=== PATIENT | female | born 1930 | race Caucasian/White ===

== ENCOUNTER 2016-07-27 11:58 | Emergency (ER) | payer MEDICARE ==
--- NOTE | 2016-07-27 12:04 | ER Document Report ---
ED Medical Screen (RME) - General Stated Complaint: BLOOD PRESSURE PROBLEMS Mode of Arrival: Ambulatory Information source: Patient Notes: c/o elevated blood pressure that started this morning. She was at oral surgeon' s office and her son states BP was 202/190 and they referred her here. Current BP in triage is 153/99. She does not take any blood pressure medication. Son states she is scared of needles and has been very anxious. Denies headache, dizziness, changes in vision, chest pain, or SOB. She has not taken any medication for this today. hx of HLD, taking cholesterol medication. I have greeted and performed a rapid initial assessment of this patient. A comprehensive ED assessment and evaluation of the patient, analysis of test results and completion of the medical decision making process will be conducted by additional ED providers. TRAVEL OUTSIDE OF THE [place] IN LAST 30 DAYS: No - Related Data Allergies/Adverse Reactions: No Known Allergies Allergy (Verified 07/27/16 12:02) Past Medical History - Past Medical History Cardiac Medical History: Reports: Hx Hypercholesterolemia Neurological Medical History: Reports: Hx Cerebrovascular Accident Physical Exam - Vital signs Vitals: Temp Pulse Resp BP Pulse Ox 98.1 F 96 18 153/99 H 93 07/27/16 12:03 07/27/16 12:03 07/27/16 12:03 07/27/16 12:03 07/27/16 12:03 Course - Vital Signs Vital signs: Temp Pulse Resp BP Pulse Ox 98.1 F 96 18 153/99 H 93 07/27/16 12:03 07/27/16 12:03 07/27/16 12:03 07/27/16 12:03 07/27/16 12:03
[2016-07-27 12:25] LABS: ABSOLUTE BASOPHILS # (AUTO) 0.1 10^3/uL (0.0-0.2); ABSOLUTE EOSINOPHILS # (AUTO) 0.1 10^3/uL (0.0-0.6); ABSOLUTE LYMPHOCYTES (AUTO) 2.3 10^3/uL (0.5-4.7); ABSOLUTE MONOCYTES (AUTO) 0.7 10^3/uL (0.1-1.4); ABSOLUTE NEUT (AUTO) 5.4 10^3/uL (1.7-8.2); EOSINOPHILS % (AUTO) 1.3 % (0-6); HEMATOCRIT 42.1 % (36.0-47.0); HGB HCT DIFFERENCE -0.1; LYMPHOCYTES % (AUTO) 26.8 % (13-45); MEAN CORPUSCULAR HEMOGLOBIN 31.3 pg (27.0-33.4); MEAN CORPUSCULAR HGB CONC 33.3 g/dL (32.0-36.0); MEAN CORPUSCULAR VOLUME 94 fl (80-97); MONOCYTES % (AUTO) 7.8 % (3-13); RED BLOOD COUNT 4.49 10^6/uL (3.72-5.28); SEGMENTED NEUTROPHILS % (AUTO) 63.1 % (42-78); WHITE BLOOD COUNT 8.5 10^3/uL (4.0-10.5)
[2016-07-27 12:45] LABS: ALANINE AMINOTRANSFERASE 33 U/L (9-52); ALBUMIN 4.5 g/dL (3.5-5.0); ALKALINE PHOSPHATASE 100 U/L (38-126); ANION GAP 11 (5-19); ASPARTATE AMINO TRANSFERASE 29 U/L (14-36); BILIRUBIN,TOTAL 0.7 mg/dL (0.2-1.3); BLOOD UREA NITROGEN 27 mg/dL (7-20); CALCIUM 10.2 mg/dL (8.4-10.2); CARBON DIOXIDE 31 mmol/L (22-30); CHLORIDE 99 mmol/L (98-107); CREATININE RESULT 1.05 mg/dL (0.52-1.25); GLUCOSE 101 mg/dL (75-110); POTASSIUM 4.6 mmol/L (3.6-5.0); SODIUM 140.9 mmol/L (137-145); TOTAL PROTEIN 8.2 g/dL (6.3-8.2)
--- NOTE | 2016-07-27 13:11 | ER Document Report ---
ED General - General Chief Complaint: High Blood Pressure Stated Complaint: BLOOD PRESSURE PROBLEMS Mode of Arrival: Ambulatory Information source: Patient Notes: 86 yrold female with hx of htn presents with complaints of high blood pressure 220/120 at the oral surgeons office. pt notes she gets scared with needles and her bp goes up. pt dneies any other concerns TRAVEL OUTSIDE OF THE [place] IN LAST 30 DAYS: No - HPI Onset: Just prior to arrival Onset/Duration: Sudden Quality of pain: No pain Severity: None Pain Level: Denies Associated symptoms: None Exacerbated by: Denies Relieved by: Denies Similar symptoms previously: Yes Recently seen / treated by doctor: Yes - Related Data Allergies/Adverse Reactions: No Known Allergies Allergy (Verified 07/27/16 12:02) Past Medical History - General Information source: Patient - Social History Smoking Status: Never Smoker Cigarette use (# per day): No Chew tobacco use (# tins/day): No Smoking Education Provided: No Frequency of alcohol use: None Drug Abuse: None Family History: Reviewed & Not Pertinent Patient has suicidal ideation: No Patient has homicidal ideation: No - Past Medical History Cardiac Medical History: Reports: Hx Hypercholesterolemia Neurological Medical History: Reports: Hx Cerebrovascular Accident Renal/ Medical History: Denies: Hx Peritoneal Dialysis Past Surgical History: Reports: Hx Orthopedic Surgery - left hip, Hx Vascular Surgery - cva 5 years ago Review of Systems - Review of Systems Notes: REVIEW OF SYSTEMS: CONSTITUTIONAL : Denies fever, chills, or sweats. Denies recent illness. EENT: Denies eye, ear, throat, or mouth pain or symptoms. Denies nasal or sinus congestion or discharge. Denies throat, tongue, or mouth swelling or difficulty swallowing. CARDIOVASCULAR: Denies chest pain. Denies palpitations or racing or irregular heart beat. Denies ankle edema. RESPIRATORY: Denies cough, cold, or chest congestion. Denies shortness of breath, difficulty breathing, or wheezing. GASTROINTESTINAL: Denies abdominal pain or distention. Denies nausea, vomiting , or diarrhea. Denies blood in vomitus, stools, or per rectum. Denies black, tarry stools. Denies constipation. GENITOURINARY: Denies difficulty urinating, painful urination, burning, frequency, blood in urine, or discharge. FEMALE GENITOURINARY: Denies vaginal bleeding, heavy or abnormal periods, irregular periods. Denies vaginal discharge or odor. MUSCULOSKELETAL: Denies back or neck pain or stiffness. Denies joint pain or swelling. SKIN: Denies rash, lesions or sores. HEMATOLOGIC : Denies easy bruising or bleeding. LYMPHATIC: Denies swollen, enlarged glands. NEUROLOGICAL: Denies confusion or altered mental status. Denies passing out or loss of consciousness. Denies dizziness or lightheadedness. Denies headache. Denies weakness or paralysis or loss of use of either side. Denies problems with gait or speech. Denies sensory loss, numbness, or tingling. Denies seizures. PSYCHIATRIC: Denies anxiety or stress. Denies depression, suicidal ideation, or homicidal ideation. ALL OTHER SYSTEMS REVIEWED AND NEGATIVE. Dictation was performed using [employer] voice recognition software PHYSICAL EXAMINATION: GENERAL: Well-appearing, well-nourished and in no acute distress. HEAD: Atraumatic, normocephalic. EYES: Pupils equal round and reactive to light, extraocular movements intact, conjunctiva are normal. ENT: Nares patent, oropharynx clear without exudates. Moist mucous membranes. NECK: Normal range of motion, supple without lymphadenopathy LUNGS: Breath sounds clear to auscultation bilaterally and equal. No wheezes rales or rhonchi. HEART: Regular rate and rhythm without murmurs ABDOMEN: Soft, nontender, nondistended abdomen. No guarding, no rebound. No masses appreciated. Female : deferred Musculoskeletal: Normal range of motion, no pitting or edema. No cyanosis. NEUROLOGICAL: Cranial nerves grossly intact. Normal speech, normal gait. Normal sensory, motor exams PSYCH: Normal mood, normal affect. SKIN: Warm, Dry, normal turgor, no rashes or lesions noted. Physical Exam - Vital signs Vitals: Temp Pulse Resp BP Pulse Ox 98.1 F 96 18 153/99 H 93 07/27/16 12:03 07/27/16 12:03 07/27/16 12:03 07/27/16 12:03 07/27/16 12:03 Course - Re-evaluation Re-evalutation: 07/27/16 13:12 Physical examination lab work notes no significant abnormality, patient's blood pressure has improved without any intervention. I have spoken to the patient's primary care physician and they will reevaluate her tomorrow family is very happy with this plan After performing a Medical Screening Examination, I estimate there is LOW risk for ACUTE CORONARY SYNDROME, RESPIRATORY FAILURE, SEPSIS OR MENINGITIS, thus I consider the discharge disposition reasonable. The patient and I have discussed the diagnosis and risks, and we agree with discharging home with close follow- up. We also discussed returning to the Emergency Department immediately if new or worsening symptoms occur. We have discussed the symptoms which are most concerning (e.g., changing or worsening pain, trouble swallowing or breathing, neck stiffness, fever) that necessitate immediate return. - Vital Signs Vital signs: Temp Pulse Resp BP Pulse Ox 98.1 F 96 18 153/99 H 93 07/27/16 12:03 07/27/16 12:03 07/27/16 12:03 07/27/16 12:03 07/27/16 12:03 - Laboratory Result Diagrams: 07/27/16 12:10 07/27/16 12:10 Laboratory results interpreted by me: 07/27/16 12:10 Carbon Dioxide 31 H BUN 27 H Est GFR (Non-Af Amer) 50 L Discharge - Discharge Clinical Impression: Hypertension Qualifiers: Hypertension type: essential hypertension Qualified Code(s): I10 - Essential ( primary) hypertension Condition: Stable Disposition: HOME, SELF-CARE Instructions: High Blood Pressure ([facility]) Additional Instructions: You have an appointment with your family doctor tomorrow
[2016-07-27 13:50] VITALS: BP 186/81
--- NOTE | 2016-07-28 09:23 | EKG REPORT ---
SEVERITY:- ABNORMAL ECG - SINUS RHYTHM LEFT ANTERIOR FASCICULAR BLOCK LVH WITH SECONDARY REPOLARIZATION ABNORMALITY : Confirmed by: Abdirashid Coy MD 28-Jul-2016 09:23:14
== END 2016-07-27 13:50 | disposition home or self-care (01) ==
LOC: ER 11:58
DX: I10 Essential (primary) hypertension (principal); Z86.73 Personal history of transient ischemic attack (TIA), and cerebral infarction without residual deficits
CPT/HCPCS: 36415; 80053; 84484; 85025; 93005; 93010; 99284

== ENCOUNTER 2017-04-01 12:40 | Inpatient (IN) | payer MEDICARE ==
[2017-04-01 13:17] LABS: VENOUS BLOOD HCO3 31.2 mmol/L (20-32); VENOUS BLOOD PCO2 64.4 mmHg (35-63); VENOUS BLOOD PH 7.3 (7.30-7.42)
[2017-04-01 13:20] LABS: ABSOLUTE BASOPHILS # (AUTO) 0.1 10^3/uL (0.0-0.2); ABSOLUTE EOSINOPHILS # (AUTO) 0.1 10^3/uL (0.0-0.6); ABSOLUTE LYMPHOCYTES (AUTO) 2.6 10^3/uL (0.5-4.7); ABSOLUTE MONOCYTES (AUTO) 0.9 10^3/uL (0.1-1.4); ABSOLUTE NEUT (AUTO) 4.2 10^3/uL (1.7-8.2); BASOPHILS % (AUTO) 0.8 % (0-2); EOSINOPHILS % (AUTO) 1.5 % (0-6); HEMATOCRIT 40.8 % (36.0-47.0); HEMOGLOBIN 13.8 g/dL (12.0-15.5); HGB HCT DIFFERENCE 0.6; LYMPHOCYTES % (AUTO) 32.5 % (13-45); MEAN CORPUSCULAR HEMOGLOBIN 31.9 pg (27.0-33.4); MEAN CORPUSCULAR HGB CONC 33.9 g/dL (32.0-36.0); MEAN CORPUSCULAR VOLUME 94 fl (80-97); MONOCYTES % (AUTO) 11.9 % (3-13); RED BLOOD COUNT 4.33 10^6/uL (3.72-5.28); RED CELL DISTRIBUTION WIDTH 13.4 % (11.5-14.0); SEGMENTED NEUTROPHILS % (AUTO) 53.3 % (42-78); WHITE BLOOD COUNT 7.9 10^3/uL (4.0-10.5)
[2017-04-01 13:38] LABS: ALANINE AMINOTRANSFERASE 38 U/L (9-52); ALBUMIN 4.5 g/dL (3.5-5.0); ALKALINE PHOSPHATASE 115 U/L (38-126); ANION GAP 15 (5-19); ASPARTATE AMINO TRANSFERASE 30 U/L (14-36); BILIRUBIN,DIRECT 0.5 mg/dL (0.0-0.4); BILIRUBIN,TOTAL 0.9 mg/dL (0.2-1.3); BLOOD UREA NITROGEN 19 mg/dL (7-20); CALCIUM 9.6 mg/dL (8.4-10.2); CARBON DIOXIDE 28 mmol/L (22-30); CHLORIDE 100 mmol/L (98-107); CREATININE RESULT 1.01 mg/dL (0.52-1.25); GLUCOSE 130 mg/dL (75-110); SODIUM 143.1 mmol/L (137-145)
--- NOTE | 2017-04-01 13:39 | ER Document Report ---
ED General - General Chief Complaint: Respiratory Distress Stated Complaint: RESPRITORY DISTRESS Time Seen by Provider: 04/01/17 12:47 Mode of Arrival: Medic Information source: Patient Notes: This is a 87-year-old female to the emergency department chief complaint of shortness of breath patient went to urgent care. Was coughing. Found to have tachycardia and increased work of breathing. Ambulance was called. 2 breathing treatments were given. Solu-Medrol was given in route. Patient denies any chest pain. Denies any leg pain. No abdominal pain. No other complaints at this time. Previous history of CVA with mild deficits remaining on the left side. Denies any recent long trips or travel. Never has had a blood clot before. Sent hospitalizations. Walks with a walker. TRAVEL OUTSIDE OF THE [place] IN LAST 30 DAYS: No - Related Data Allergies/Adverse Reactions: No Known Allergies Allergy (Verified 07/27/16 12:02) Past Medical History - Social History Smoking Status: Former Smoker Family History: Reviewed & Not Pertinent - Past Medical History Cardiac Medical History: Reports: Hx Hypercholesterolemia Neurological Medical History: Reports: Hx Cerebrovascular Accident Renal/ Medical History: Denies: Hx Peritoneal Dialysis Past Surgical History: Reports: Hx Orthopedic Surgery - left hip, Hx Vascular Surgery - cva 5 years ago Physical Exam - Vital signs Vitals: Resp Pulse Ox 20 99 04/01/17 12:51 04/01/17 12:51 Course - Re-evaluation Re-evalutation: 04/01/17 14:41 This is an 87-year-old female in no significant respiratory distress at this time. Patient has some tachycardia but did receive [id number] breathing treatments. D-dimer has been ordered. Does not have a fever. Does have a very significant cough. More likely a bronchitis picture at this time. We will continue to monitor. 04/01/17 16:46 She was grossly elevated d-dimer. Ordering CT scan. Of note, patient has extremely elevated BNP. Will need to be admitted for CHF. Will begin process of admitting. 04/01/17 17:[address] angiogram at this time. 04/01/17 18:02 Laboratory 04/01/17 04/01/17 04/01/17 12:58 12:58 12:58 WBC 7.9 RBC 4.33 Hgb 13.8 Hct 40.8 MCV 94 MCH 31.9 MCHC 33.9 RDW 13.4 Plt Count 151 Seg Neutrophils % 53.3 Lymphocytes % 32.5 Monocytes % 11.9 Eosinophils % 1.5 Basophils % 0.8 Absolute Neutrophils 4.2 Absolute Lymphocytes 2.6 Absolute Monocytes 0.9 Absolute Eosinophils 0.1 Absolute Basophils 0.1 PT 13.0 INR 0.91 D-Dimer VBG pH VBG pCO2 VBG HCO3 VBG Base Excess Sodium 143.1 Potassium 4.0 Chloride 100 Carbon Dioxide 28 Anion Gap 15 BUN 19 Creatinine 1.01 Est GFR ( Amer) > 60 Est GFR (Non-Af Amer) 52 L Glucose 130 H POC Glucose Lactic Acid Calcium 9.6 Total Bilirubin 0.9 Direct Bilirubin 0.5 H Indirect Bilirubin Not Reportable Neonat Total Bilirubin Not Reportable AST 30 ALT 38 Alkaline Phosphatase 115 Troponin I NT-Pro-B Natriuret Pep Total Protein 8.0 Albumin 4.5 Urine Color Urine Appearance Urine pH Ur Specific [place] Urine Protein Urine Glucose (UA) Urine Ketones Urine Blood Urine Nitrite Urine Bilirubin Urine Urobilinogen Ur Leukocyte Esterase Urine WBC (Auto) Urine RBC (Auto) U Hyaline Cast (Auto) Urine Mucus (Auto) Urine Ascorbic Acid 04/01/17 04/01/17 04/01/17 12:58 12:58 12:58 WBC RBC Hgb Hct MCV MCH MCHC RDW Plt Count Seg Neutrophils % Lymphocytes % Monocytes % Eosinophils % Basophils % Absolute Neutrophils Absolute Lymphocytes Absolute Monocytes Absolute Eosinophils Absolute Basophils PT INR D-Dimer VBG pH 7.30 VBG pCO2 64.4 H VBG HCO3 31.2 VBG Base Excess 3.0 Sodium Potassium Chloride Carbon Dioxide Anion Gap BUN Creatinine Est GFR ( Amer) Est GFR (Non-Af Amer) Glucose POC Glucose Lactic Acid 2.3 H Calcium Total Bilirubin Direct Bilirubin Indirect Bilirubin Neonat Total Bilirubin AST ALT Alkaline Phosphatase Troponin I 0.028 NT-Pro-B Natriuret Pep 1170 H Total Protein Albumin Urine Color Urine Appearance Urine pH Ur Specific [place] Urine Protein Urine Glucose (UA) Urine Ketones Urine Blood Urine Nitrite Urine Bilirubin Urine Urobilinogen Ur Leukocyte Esterase Urine WBC (Auto) Urine RBC (Auto) U Hyaline Cast (Auto) Urine Mucus (Auto) Urine Ascorbic Acid 04/01/17 04/01/17 04/01/17 12:58 13:08 13:55 WBC RBC Hgb Hct MCV MCH MCHC RDW Plt Count Seg Neutrophils % Lymphocytes % Monocytes % Eosinophils % Basophils % Absolute Neutrophils Absolute Lymphocytes Absolute Monocytes Absolute Eosinophils Absolute Basophils PT INR D-Dimer 1.84 H VBG pH VBG pCO2 VBG HCO3 VBG Base Excess Sodium Potassium Chloride Carbon Dioxide Anion Gap BUN Creatinine Est GFR ( Amer) Est GFR (Non-Af Amer) Glucose POC Glucose 122 H Lactic Acid Calcium Total Bilirubin Direct Bilirubin Indirect Bilirubin Neonat Total Bilirubin AST ALT Alkaline Phosphatase Troponin I NT-Pro-B Natriuret Pep Total Protein Albumin Urine Color YELLOW Urine Appearance CLEAR Urine pH 6.0 Ur Specific [place] 1.012 Urine Protein NEGATIVE Urine Glucose (UA) NEGATIVE Urine Ketones NEGATIVE Urine Blood NEGATIVE Urine Nitrite NEGATIVE Urine Bilirubin NEGATIVE Urine Urobilinogen NEGATIVE Ur Leukocyte Esterase NEGATIVE Urine WBC (Auto) 2 Urine RBC (Auto) 0 U Hyaline Cast (Auto) 1 Urine Mucus (Auto) RARE Urine Ascorbic Acid NEGATIVE 04/01/17 16:15 WBC RBC Hgb Hct MCV MCH MCHC RDW Plt Count Seg Neutrophils % Lymphocytes % Monocytes % Eosinophils % Basophils % Absolute Neutrophils Absolute Lymphocytes Absolute Monocytes Absolute Eosinophils Absolute Basophils PT INR D-Dimer VBG pH VBG pCO2 VBG HCO3 VBG Base Excess Sodium Potassium Chloride Carbon Dioxide Anion Gap BUN Creatinine Est GFR ( Amer) Est GFR (Non-Af Amer) Glucose POC Glucose Lactic Acid 1.5 Calcium Total Bilirubin Direct Bilirubin Indirect Bilirubin Neonat Total Bilirubin AST ALT Alkaline Phosphatase Troponin I NT-Pro-B Natriuret Pep Total Protein Albumin Urine Color Urine Appearance Urine pH Ur Specific [place] Urine Protein Urine Glucose (UA) Urine Ketones Urine Blood Urine Nitrite Urine Bilirubin Urine Urobilinogen Ur Leukocyte Esterase Urine WBC (Auto) Urine RBC (Auto) U Hyaline Cast (Auto) Urine Mucus (Auto) Urine Ascorbic Acid Chest X-Ray 04/01/17 12:43 IMPRESSION: No significant change. No acute findings. Chest/Abdomen CTA 04/01/17 15:56 IMPRESSION: NORMAL CTA OF THE CHEST. NO PULMONARY EMBOLI. CHRONIC AND INCIDENTAL FINDINGS DETAILED ABOVE. CT scan unremarkable for pulmonary embolism. Elevated BNP. Patient does not remember if she has congestive heart failure or not. More than likely I think this represents some bronchitis. Did have improvement with breathing treatments however her heart rate is still elevated at 115. BNP over 1100. Patient will need to be admitted for treatment of bronchitis as well as treatment for CHF. Consulted hospitalist, Dr. Menendez to accept at this time. - Vital Signs Vital signs: Temp Pulse Resp BP Pulse Ox 98.2 F 126 H 24 H 135/96 H 95 04/01/17 13:12 04/01/17 13:12 04/01/17 17:02 04/01/17 17:02 04/01/17 17:02 - Laboratory Result Diagrams: 04/01/17 12:58 04/01/17 12:58 Laboratory results interpreted by me: 04/01/17 04/01/17 04/01/17 12:58 12:58 12:58 D-Dimer VBG pCO2 64.4 H Est GFR (Non-Af Amer) 52 L Glucose 130 H POC Glucose Lactic Acid 2.3 H Direct Bilirubin 0.5 H NT-Pro-B Natriuret Pep 04/01/17 04/01/17 04/01/17 12:58 12:58 13:08 D-Dimer 1.84 H VBG pCO2 Est GFR (Non-Af Amer) Glucose POC Glucose 122 H Lactic Acid Direct Bilirubin NT-Pro-B Natriuret Pep 1170 H - EKG Interpretation by Me EKG shows normal: Intervals, QRS Complexes, ST-T Waves Rate: Tachycardia Voltage: Consistant with LVH Discharge - Discharge Clinical Impression: Acute bronchitis Qualifiers: Bronchitis organism: unspecified organism Qualified Code(s): J20.9 - Acute bronchitis, unspecified CHF (congestive heart failure) Qualifiers: Congestive heart failure type: diastolic Congestive heart failure chronicity: acute on chronic Qualified Code(s): I50.33 - Acute on chronic diastolic ( congestive) heart failure Condition: Good Disposition: ADMITTED INPATIENT Admitting Provider: Hospitalist Unit Admitted: Telemetry - [place] Referrals: STEPHANIE MORFIN MD [Primary Care Provider] - Follow up as needed
--- NOTE | 2017-04-01 13:49 | RADIOLOGY REPORT (SQ) ---
EXAM DESCRIPTION: CHEST SINGLE VIEW COMPLETED DATE/TIME: 04/01/2017 1:35 pm REASON FOR STUDY: bed 17 sepsis COMPARISON: 07/23/2015 NUMBER OF VIEWS: One view. TECHNIQUE: Single frontal radiographic image of the chest acquired. LIMITATIONS: None. FINDINGS: LUNGS AND PLEURA: Stable appearance. MEDIASTINUM AND HEART: Stable heart size and mediastinal structures. BONY STRUCTURES: No acute findings. HARDWARE: None. OTHER: No other significant finding. IMPRESSION: No significant change. No acute findings. TECHNICAL DOCUMENTATION: JOB ID: [id number]
[2017-04-01 14:21] LABS: APPEARANCE,URINE CLEAR; BILIRUBIN,URINE NEGATIVE (NEGATIVE); GLUCOSE, URINE NEGATIVE (NEGATIVE); KETONES,URINE NEGATIVE (NEGATIVE); LEUKOCYTE ESTERASE,URINE NEGATIVE (NEGATIVE); NITRITE,URINE NEGATIVE (NEGATIVE); PROTEIN,URINE NEGATIVE (NEGATIVE); URINE SPECIFIC GRAVITY 1.012; UROBILINOGEN,URINE NEGATIVE mg/dL (<2.0)
[2017-04-01] MEDS ORDERED: NORMAL SALINE 500 ML IV ONE (14:44)
[2017-04-01] MEDS ORDERED: ALBUTEROL SULFATE 0.083% NEB 2.5 MG/3 ML AMPUL NEB ONE (14:44)
--- NOTE | 2017-04-01 15:05 | EKG REPORT ---
SEVERITY:- ABNORMAL ECG - SINUS TACHYCARDIA LEFT AXIS DEVIATION LVH WITH SECONDARY REPOLARIZATION ABNORMALITY : Confirmed by: Donna Teresa 01-Apr-2017 15:05:00
[2017-04-01 15:22] LABS: TROPONIN I 0.028 ng/mL
[2017-04-01] MEDS ORDERED: FUROSEMIDE INJ/PF 20 MG/2 ML SDV IV ONE (16:05)
--- NOTE | 2017-04-01 17:38 | RADIOLOGY REPORT (SQ) ---
EXAM DESCRIPTION: CTA CHEST COMPLETED DATE/TIME: 04/01/2017 5:02 pm REASON FOR STUDY: sob, d-dimer COMPARISON: Chest radiograph 04/01/2017 TECHNIQUE: CT scan of the chest performed using helical scanning technique with dynamic intravenous contrast injection. Images reviewed with lung, soft tissue and bone windows. Reconstructed coronal and sagittal MPR images reviewed. Additional 3 dimensional post-processing performed to develop Maximal Intensity Projection images (TN P). All images stored on PACS. All CT scanners at this facility use dose modulation, iterative reconstruction, and/or weight based d osing when appropriate to reduce radiation dose to as low as reasonably achievable (ALARA). [facility]: Dose Right [facility]: CareDose [facility]: Dose Right [facility]: Teradose 4D [facility]: Soundflavor CONTRAST TYPE AND DOSE: contrast/concentration: Isovue 370.00 mg/ml; Total Contrast Delivered: 62.0 ml; Total Saline Delivered: 100.1 ml Contrast bolus optimized for the pulmonary arteries. Not diagnostic for the aorta. RENAL FUNCTION: BUN 19; creatinine 1.01 RADIATION DOSE: Up-to-date CT equipment and radiation dose reduction techniques were employed. CTDIv ol: 13.2 - 14.3 mGy. DLP: 494 mGy-cm. . LIMITATIONS: None. FINDINGS: LUNGS AND PLEURA: Mild centrilobular emphysematous change. No focal consolidation. Bibas ilar atelectasis versus scarring. No pleural effusion. No pneumothorax. AORTA AND GREAT VESSELS: Aneurysmal dilatation of the descending thoracic aorta. HEART: No pericardial effusion. Coronary artery calcifications are present. PULMONARY ARTERIES: No emboli visualized in the main pulmonary arteries or the segmental branches. HILAR AND MEDIASTINAL STRUCTURES: No identified masses or abnormal nodes. HARDWARE: None in the chest. UPPER ABDOMEN: Limited exam. Cholelithiasis without evidence of cholecystitis. THYROID AND OTHER SOFT TISSUES: No masses. No adenopathy. BONES: Chronic appearing wedge compression deformity of the L1 vertebral body. Mild wedging of the T 4 vertebral body. Diffuse osteopenia. 3D MIPS: Confirm above findings. OTHER: No other significant finding. IMPRESSION: NORMAL CTA OF THE CHEST. NO PULMONARY EMBOLI. CHRONIC AND INCIDENTAL FINDINGS DETAIL ED ABOVE. COMMENT: Quality ID # [id number]: Final reports with documentation of one or more dose reduction techniques (e.g., Automated exposure control, adjustment of the mA and/or kV according to patient size, use of iterative reconstruction technique) TECHNICAL DOCUMENTATION: JOB ID: [id number] [employer]- All Rights Reserved
[2017-04-01] MEDS ORDERED: ACETAMINOPHEN 325 MG TABLET PO PRN (19:01)
[2017-04-01] MEDS ORDERED: ONDANSETRON HCL INJ/PF 4 MG/2 ML SDV IV PRN (19:01)
[2017-04-01] MEDS ORDERED: BENZONATATE 100 MG CAPSULE PO PRN (19:15)
[2017-04-01] MEDS ORDERED: AZITHROMYCIN 250 MG TABLET PO ONE (20:00)
[2017-04-01] MEDS: BUDESONIDE NEB 0.5 MG/2 ML AMPUL NEB SCH (20:33)
[2017-04-01] MEDS: LEVALBUTEROL HCL NEB 1.25 MG/3 ML AMPUL NEB SCH (20:34)
[2017-04-01] MEDS ORDERED: CEFTRIAXONE 1 GM/D5W RTU 1 GM/50 ML RTUPB IV SCH (22:00)
[2017-04-02] MEDS ORDERED: AZITHROMYCIN 250 MG TABLET ONE (00:38)
[2017-04-02] MEDS: GUAIFENESIN 600 MG TABLET.SA PO SCH ×2 (00:51→09:49)
[2017-04-02] MEDS: LEVALBUTEROL HCL NEB 1.25 MG/3 ML AMPUL NEB SCH ×3 (01:55→13:39)
[2017-04-02] MEDS: BUDESONIDE NEB 0.5 MG/2 ML AMPUL NEB SCH (08:24)
[2017-04-02 09:01] LABS: FREE T3 2.77 pg/mL (2.77-5.27)
[2017-04-02 09:14] LABS: THYROID STIMULATING HORMONE 0.35 uIU/mL (0.47-4.68)
[2017-04-02] MEDS ORDERED: ATORVASTATIN CALCIUM 40 MG TABLET PO SCH (10:00)
[2017-04-02] MEDS ORDERED: PREDNISONE 20 MG TABLET PO SCH (10:00)
[2017-04-02] MEDS ORDERED: ASPIRIN 81 MG TABLET, CHEWABLE PO SCH (10:00)
[2017-04-02] MEDS ORDERED: ENOXAPARIN SODIUM INJ 40 MG/0.4 ML DISP.SYRIN SUBCUT SCH (10:00)
[2017-04-02 17:05] VITALS: BP 109/90
[2017-04-02] MEDS ORDERED: AZITHROMYCIN 250 MG TABLET PO SCH (18:00)
--- NOTE | 2017-04-08 20:09 | PDOC H&P ---
History of Present Illness Admission Date/PCP: 04/01/17 19:01 STEPHANIE MORFIN MD Patient complains of: Difficulty breathing History of Present Illness: LO HUBER is a 87 year old female presenting with complaint of a dry cough since Sunday or 7 days ago. She is also congested. Patient cannot take a deep breathe. Patient states she cannot sit with her head elevated as if is more difficult to breathe. She can however lay flat without any difficulty. Patient states she was around her grandson who has a cold. She denies any swelling of her feet. Patient was seen a [facility]. She was given a nebulizer but it is not helping. Patient did smoke in the past. She quit 30 years ago. She lives in a household where others smoke. She denies having this problem in the past. In the ED patient's vitals where stable. Her lactic acid was elevated. CTA chest was negative for PE or pneumonia. Hospitalist called to to admit patient for acute bronchitis. Past Medical History Cardiac Medical History: Reports: Hyperlipidema Neurological Medical History: Reports: Ischemic CVA Renal/ Medical History: Reports: Chronic Kidney Disease Psychiatric Medical History: Denies: Depression Past Surgical History Past Surgical History: Reports: Orthopedic Surgery - left hip, Vascular Surgery - cva 5 years ago Social History Smoking Status: Former Smoker - Quit 30 years ago Frequency of Alcohol Use: None Hx Recreational Drug Use: No Drugs: None Hx Prescription Drug Abuse: No Family History Family History: CAD Parental Family History Reviewed: Yes Children Family History Reviewed: Yes Sibling(s) Family History Reviewed.: Yes Medication/Allergy Home Medications: Aspirin [Aspirin 81 mg Chewable Tablet] 81 mg PO DAILY 07/23/15 Atorvastatin Calcium [Lipitor] 40 mg PO DAILY 07/23/15 Allergies/Adverse Reactions: No Known Allergies Allergy (Verified 07/27/16 12:02) Review of Systems Constitutional: ABSENT: chills, fever(s), headache(s), weight gain, weight loss Eyes: ABSENT: visual disturbances Ears: ABSENT: hearing changes Cardiovascular: ABSENT: chest pain, dyspnea on exertion, edema, orthropnea, palpitations Respiratory: PRESENT: cough, dyspnea. ABSENT: hemoptysis Gastrointestinal: ABSENT: abdominal pain, constipation, diarrhea, hematemesis, hematochezia, nausea, vomiting Genitourinary: ABSENT: dysuria, hematuria Musculoskeletal: ABSENT: joint swelling Integumentary: ABSENT: rash, wounds Neurological: PRESENT: weakness - left arm. ABSENT: abnormal gait, abnormal speech, confusion, dizziness, focal weakness, syncope Psychiatric: ABSENT: anxiety, depression, homidical ideation, suicidal ideation Endocrine: ABSENT: cold intolerance, heat intolerance, polydipsia, polyuria Hematologic/Lymphatic: ABSENT: easy bleeding, easy bruising Physical Exam Vital Signs: Vitals Temp 98.5 HR 122 BP 172/95 RR 19 Sat 97% 2L General appearance: PRESENT: no acute distress, well-developed, well-nourished Head exam: PRESENT: normocephalic Eye exam: PRESENT: EOMI. ABSENT: scleral icterus Mouth exam: PRESENT: dry mucosa Neck exam: ABSENT: carotid bruit, JVD, lymphadenopathy, thyromegaly Respiratory exam: PRESENT: clear to auscultation addison. ABSENT: rales, rhonchi, wheezes Cardiovascular exam: PRESENT: RRR. ABSENT: diastolic murmur, rubs, systolic murmur Pulses: PRESENT: normal dorsalis pedis pul Vascular exam: PRESENT: normal capillary refill GI/Abdominal exam: PRESENT: normal bowel sounds, soft. ABSENT: distended, guarding, mass, organolmegaly, rebound, tenderness Rectal exam: PRESENT: deferred Extremities exam: PRESENT: full ROM. ABSENT: calf tenderness, clubbing, pedal edema Neurological exam: PRESENT: alert, awake, oriented to person, oriented to place , oriented to time, oriented to situation, CN II-XII grossly intact. ABSENT: motor sensory deficit Psychiatric exam: PRESENT: appropriate affect, normal mood. ABSENT: homicidal ideation, suicidal ideation Skin exam: PRESENT: dry, intact, warm. ABSENT: cyanosis, rash Results Laboratory Results: 04/01/17 04/02/17 04/02/17 19:30 01:17 07:20 Troponin I 0.024 0.030 0.039 Impressions: Chest X-Ray 04/01/17 12:43 IMPRESSION: No significant change. No acute findings. Chest/Abdomen CTA 04/01/17 15:56 IMPRESSION: NORMAL CTA OF THE CHEST. NO PULMONARY EMBOLI. CHRONIC AND INCIDENTAL FINDINGS DETAILED ABOVE. Assessment & Plan - Diagnosis (1) Acute bronchitis Qualifiers: Bronchitis organism: unspecified organism Qualified Code(s): J20.9 - Acute bronchitis, unspecified Plan: Possibly viral in nature. Patient without wheezing. Will start on po prednisone, ceftriaxone and azithromax. Will also start nebs. Patient maintaining sats but will continue supplemental oxygen. Mucinex for congestion and anti tussive PRN. (2) Elevated blood pressure reading Is this a current diagnosis for this admission?: Yes Plan: Patient does not give a history of hypertension. Patient blood pressure could be elevated due to acute illness. Patient should follow up with PCP on discharge to have blood pressure check and started on medication at that time if needed. (3) Lactic acidosis Is this a current diagnosis for this admission?: Yes Plan: Secondary to increased work of breathing. Will gently hydrate as patient does have history of diastolic heart failure. (4) CKD (chronic kidney disease) stage 3, GFR 30-59 ml/min Is this a current diagnosis for this admission?: Yes Plan: Appear to be at baseline. Patient given hydration for elevated lactic acid. (5) Hyperlipidemia Is this a current diagnosis for this admission?: Yes Plan: Continue statin. (6) Diastolic CHF Qualifiers: Congestive heart failure chronicity: chronic Qualified Code(s): I50.32 - Chronic diastolic (congestive) heart failure Is this a current diagnosis for this admission?: Yes Plan: Currently compenstated. - Time Time Spent: 30 to 50 Minutes Medications reviewed and adjusted accordingly: Yes Anticipated discharge: Home Within: within 48 hours - Inpatient Certification Medical Necessity: Need Close Monitoring Due to Risk of Patient Decompensation
--- NOTE | 2017-04-08 22:18 | PDOC DISCHARGE SUMMARY ---
General - Admit/Disc Date/PCP Admission Date/Primary Care Provider: 04/01/17 19:01 STEPHANIE MORFIN MD Discharge Date: 04/02/17 - Discharge Diagnosis (2) Elevated blood pressure reading Is this a current diagnosis for this admission?: Yes (3) Lactic acidosis Is this a current diagnosis for this admission?: Yes (4) CKD (chronic kidney disease) stage 3, GFR 30-59 ml/min Is this a current diagnosis for this admission?: Yes (5) Hyperlipidemia Is this a current diagnosis for this admission?: Yes (6) Diastolic CHF Is this a current diagnosis for this admission?: Yes - Additional Information Discharge Activity: Activity As Tolerated, Balance Activity w/Rest Home Medications: Aspirin [Aspirin 81 mg Chewable Tablet] 81 mg PO DAILY 07/23/15 Atorvastatin Calcium [Lipitor] 40 mg PO DAILY 07/23/15 History of Present Illness History of Present Illness: LO HUBER is a 87 year old female presented wiwth a 7 days history of dry cough and congestion. She was prescribed nebulizer treatments which are not working. CTA chest done in the ED negative for PE or pneumonia. Hospital Course Hospital Course: Patient was admitted and treated for acute bronchitis. Patient given IV ceftriaxone, oral azithromycin and oral prednisone. Patient given mucinex and nebs. Patient continued on supplemental oxygen however she was maintaining her saturations. Patient was able to ambulate with a walker the next day which is her baseline. Patient and family member were sure that they would be able to continue to care for her at home. Patient blood pressure was elevated however she does not have a diagnosis of hypertension. This could be a result of the acute illness and the use of steroids. Patient should follow up with PCP to have this checked. The lactic acidosis could have been related to the breathing difficulties and did resolved with IV hydration. Patient does have history of Grade I diastolic dysfunction but appeared to be euvolemic on presentation. Patient has what appears to be CKD stage 3 but was at her baseline. Patient was continued on her statin for her hyperlipidemia. Physical Exam Vital Signs: Temp Pulse Resp BP Pulse Ox 98.7 F 108 H 18 142/94 H 94 04/02/17 13:17 04/02/17 14:00 04/02/17 13:39 04/02/17 13:17 04/02/17 13:39 General appearance: PRESENT: no acute distress, well-developed, well-nourished Head exam: PRESENT: atraumatic, normocephalic Eye exam: PRESENT: conjunctiva pink, EOMI, PERRLA. ABSENT: scleral icterus Ear exam: PRESENT: normal external ear exam Mouth exam: PRESENT: moist, tongue midline Neck exam: ABSENT: carotid bruit, JVD, lymphadenopathy, thyromegaly Respiratory exam: PRESENT: clear to auscultation addison. ABSENT: rales, rhonchi, wheezes Cardiovascular exam: PRESENT: RRR. ABSENT: diastolic murmur, rubs, systolic murmur Pulses: PRESENT: normal dorsalis pedis pul Vascular exam: PRESENT: normal capillary refill GI/Abdominal exam: PRESENT: normal bowel sounds, soft. ABSENT: distended, guarding, mass, organolmegaly, rebound, tenderness Rectal exam: PRESENT: deferred Extremities exam: PRESENT: full ROM. ABSENT: calf tenderness, clubbing, pedal edema Neurological exam: PRESENT: alert, awake, oriented to person, oriented to place , oriented to time, oriented to situation, CN II-XII grossly intact, other. ABSENT: motor sensory deficit Psychiatric exam: PRESENT: appropriate affect, normal mood. ABSENT: homicidal ideation, suicidal ideation Skin exam: PRESENT: dry, intact, warm. ABSENT: cyanosis, rash Results Laboratory Results: 04/01/17 04/02/17 04/02/17 19:30 01:17 07:20 Troponin I 0.024 0.030 0.039 Impressions: Chest X-Ray 04/01/17 12:43 IMPRESSION: No significant change. No acute findings. Chest/Abdomen CTA 04/01/17 15:56 IMPRESSION: NORMAL CTA OF THE CHEST. NO PULMONARY EMBOLI. CHRONIC AND INCIDENTAL FINDINGS DETAILED ABOVE. Qualifiers PATEINT BEING DISCHARGED WITH ANY OF THE FOLLOWING DIAGNOSIS?: Heart Failure Plan Time Spent: Less than 30 Minutes
== END 2017-04-02 17:02 | disposition home or self-care (01) | DRG 202 ==
LOC: ER 12:40 → EH 18:22 → UNDOADMIN 18:22 → EH 19:01 → 4S 21:55
PROVIDERS: ADMIT Pediatrics; ATTEND Pediatrics
DX: J20.9 Acute bronchitis, unspecified (principal); I50.32 Chronic diastolic (congestive) heart failure; N18.3 Chronic kidney disease, stage 3 (moderate); E78.5 Hyperlipidemia, unspecified; R03.0 Elevated blood-pressure reading, without diagnosis of hypertension; R74.0 Nonspecific elevation of levels of transaminase and lactic acid dehydrogenase [LDH]; Z86.73 Personal history of transient ischemic attack (TIA), and cerebral infarction without residual deficits; Z87.891 Personal history of nicotine dependence
CPT/HCPCS: 36415; 51701; 71010; 71275; 80053; 81001; 82803; 82962; 83605; 83880; 84439; 84443; 84481; 84484; 85025; 85379; 85610; 87040; 87086; 93005; 93010; 94640; 96361; 96374; 99285; J0696; J1650; J1940; J3490; J7040; J7512

== ENCOUNTER 2017-06-08 18:07 | Emergency (ER) | payer MEDICARE ==
--- NOTE | 2017-06-08 19:39 | ER Document Report ---
ED Medical Screen (RME) - General Chief Complaint: High Blood Pressure Stated Complaint: BLOOD PRESSURE ISSUES, SIDE PAIN Time Seen by Provider: 06/08/17 19:31 Notes: 87-year-old female here with complaints of right flank pain ongoing for the past 4-5 days. Pain sometimes radiates around to the abdomen. Pain has been intermittent. She has not noticed anything that significantly worsens or improves the pain. Her PCP sent her over here today because her blood pressure is elevated and he did not know if the elevated blood pressure was related to the flank pain. Of note, family does note that she has aortic abnormalities. TRAVEL OUTSIDE OF THE [place] 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 Denies: Hx Peritoneal Dialysis Psychiatric Medical History: Denies: Hx Depression Past Surgical History: Reports: Hx Orthopedic Surgery - left hip, Hx Vascular Surgery - cva 5 years ago - Immunizations History of Influenza Vaccine for 02/2017 - 07/2017 Season: Yes Influenza Administration Date for 02/2017 - 07/2017 Season: 02/25/17 Physical Exam - Vital signs Vitals: Temp Pulse Resp BP Pulse Ox 98.9 F 103 H 16 168/111 H 91 L 06/08/17 18:32 06/08/17 18:32 06/08/17 18:32 06/08/17 18:32 06/08/17 18:32 Course - Vital Signs Vital signs: Temp Pulse Resp BP Pulse Ox 98.9 F 103 H 16 168/111 H 91 L 06/08/17 18:32 06/08/17 18:32 06/08/17 18:32 06/08/17 18:32 06/08/17 18:32
[2017-06-08 20:12] LABS: AMORPHOUS SEDIMENT,URINE TRACE /HPF; APPEARANCE,URINE CLEAR; BILIRUBIN,URINE NEGATIVE (NEGATIVE); COLOR,URINE YELLOW; GLUCOSE, URINE NEGATIVE (NEGATIVE); KETONES,URINE NEGATIVE (NEGATIVE); LEUKOCYTE ESTERASE,URINE TRACE (NEGATIVE); NITRITE,URINE NEGATIVE (NEGATIVE); PROTEIN,URINE NEGATIVE (NEGATIVE); URINE SPECIFIC GRAVITY 1.011; UROBILINOGEN,URINE NEGATIVE mg/dL (<2.0)
[2017-06-08 20:21] LABS: ABSOLUTE BASOPHILS # (AUTO) 0.1 10^3/uL (0.0-0.2); ABSOLUTE EOSINOPHILS # (AUTO) 0.2 10^3/uL (0.0-0.6); ABSOLUTE MONOCYTES (AUTO) 0.7 10^3/uL (0.1-1.4); ABSOLUTE NEUT (AUTO) 4.8 10^3/uL (1.7-8.2); BASOPHILS % (AUTO) 1.2 % (0-2); EOSINOPHILS % (AUTO) 2.3 % (0-6); HEMATOCRIT 43.8 % (36.0-47.0); LYMPHOCYTES % (AUTO) 33.9 % (13-45); MEAN CORPUSCULAR HEMOGLOBIN 32.1 pg (27.0-33.4); MEAN CORPUSCULAR HGB CONC 34.3 g/dL (32.0-36.0); MEAN CORPUSCULAR VOLUME 93 fl (80-97); MONOCYTES % (AUTO) 7.9 % (3-13); PLATELET COUNT 240 10^3/uL (150-450); RED BLOOD COUNT 4.68 10^6/uL (3.72-5.28); RED CELL DISTRIBUTION WIDTH 13.6 % (11.5-14.0); SEGMENTED NEUTROPHILS % (AUTO) 54.7 % (42-78); TOTAL CELLS COUNTED % (AUTO) 100 %; WHITE BLOOD COUNT 8.8 10^3/uL (4.0-10.5)
[2017-06-08 20:43] LABS: ALANINE AMINOTRANSFERASE 26 U/L (9-52); ALBUMIN 4.7 g/dL (3.5-5.0); ALKALINE PHOSPHATASE 92 U/L (38-126); ANION GAP 13 (5-19); ASPARTATE AMINO TRANSFERASE 29 U/L (14-36); BILIRUBIN,DIRECT 0.4 mg/dL (0.0-0.4); BILIRUBIN,TOTAL 0.6 mg/dL (0.2-1.3); BLOOD UREA NITROGEN 26 mg/dL (7-20); CALCIUM 10.6 mg/dL (8.4-10.2); CARBON DIOXIDE 28 mmol/L (22-30); CHLORIDE 99 mmol/L (98-107); GLUCOSE 100 mg/dL (75-110); LIPASE 134.4 U/L (23-300); POTASSIUM 4.4 mmol/L (3.6-5.0); SODIUM 139.6 mmol/L (137-145); TOTAL PROTEIN 7.9 g/dL (6.3-8.2)
--- NOTE | 2017-06-08 21:40 | RADIOLOGY REPORT (SQ) ---
EXAM DESCRIPTION: CTA CHEST COMPLETED DATE/TIME: 06/08/2017 9:23 pm REASON FOR STUDY: R flank/side pain and elevated BP; eval dissection COMPARISON: 04/01/2017 TECHNIQUE: CT scan of the chest performed using helical scanning technique with dynamic intravenous contrast injection. Images reviewed with lung, soft tissue and bone windows. Reconstructed coronal and sagittal MPR images reviewed. Additional 3 dimensional post-processing performed to develop Maximal Intensity Projection images (NV P). All images stored on PACS. All CT scanners at this facility use dose modulation, iterative reconstruction, and/or weight based d osing when appropriate to reduce radiation dose to as low as reasonably achievable (ALARA). [facility]: Dose Right [facility]: CareDose [facility]: Dose Right [facility]: Teradose 4D [facility]: [employer] CONTRAST TYPE AND DOSE: contrast/concentration: Isovue 370.00 mg/ml; Total Contrast Delivered: 100.0 ml; Total Saline Delivered: 90.0 ml Contrast bolus adequate for pulmonary arteries and aorta. RENAL FUNCTION: Creatinine 1.1 RADIATION DOSE: . LIMITATIONS: None. FINDINGS: LUNGS AND PLEURA: Mild interstitial changes. Question mild failure. No correlative chest x-ray. AORTA AND GREAT VESSELS: Extensive maximum diameter of the descending aorta is 4 cm. Maximum diamete r upper abdominal aorta are is 3.7 cm. Ectasia with calcification and mural thrombus. No focal aneu rysm or dissection. HEART: No pericardial effusion. No significant coronary artery calcifications. PULMONARY ARTERIES: No emboli visualized in the main pulmonary arteries or the segmental branches. HILAR AND MEDIASTINAL STRUCTURES: No identified masses or abnormal nodes. HARDWARE: None in the chest. UPPER ABDOMEN: See separate report of the CT of the abdomen. THYROID AND OTHER SOFT TISSUES: No masses. No adenopathy. BONES: Stable compression fractures. 3D MIPS: Confirm above findings. OTHER: No other significant finding. 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 Maximum d iameter descending aorta 4 cm. No dissection. No pulmonary emboli. COMMENT: Quality ID # [id number]: Final reports with documentation of one or more dose reduction techniques (e.g., Automated exposure control, adjustment of the mA and/or kV according to patient size, use of iterative reconstruction technique) TECHNICAL DOCUMENTATION: JOB ID: [id number]- All Rights Reserved
--- NOTE | 2017-06-08 21:47 | RADIOLOGY REPORT (SQ) ---
EXAM DESCRIPTION: CTA ABDOMEN/PELVIS W WO COMPLETED DATE/TIME: 06/08/2017 9:23 pm REASON FOR STUDY: R flank/side pain and elevated BP; eval dissection COMPARISON: None. TECHNIQUE: CT scan of the abdominal aorta extending through the pelvis with intravenous contrast usi ng helical scanning technique with dynamic intravenous contrast injection. Images reviewed with lung, soft tissue, and bone windows. Reconstructed coronal and sagittal MPR images reviewed. All images st ored on PACS. Advanced 3D imaging as volume rendering, MIPS, SSD performed? yes All CT scanners at this facility use dose modulation, iterative reconstruction, and/or weight based d osing when appropriate to reduce radiation dose to as low as reasonably achievable (ALARA). [facility]: Dose Right [facility]: CareDose [facility]: Dose Right [facility]: Teradose 4D [facility]: [employer] CONTRAST TYPE AND DOSE: See chest CT RENAL FUNCTION: See chest CT LIMITATIONS: None. FINDINGS: POST-CONTRAST IMAGING: AORTA AND VESSELS: Diffuse ectasia. Proximal dilatation of the abdominal aorta up to 4 cm proximal t o the celiac axis and SMA. Distal there is no aneurysm but there is a ectasia with mural thrombus an d extensive calcification. No occlusions of great vessels. LUNG BASES: No significant findings. No nodules or infiltrates. LIVER: Normal size. No masses or dilated ducts. SPLEEN: Normal size. No focal lesions. PANCREAS: No masses. No significant calcifications. No adjacent inflammation or peripancreatic fluid collections. Pancreatic duct not dilated. GALLBLADDER: Gallstones. Distended gallbladder. ADRENAL GLANDS: No significant masses or asymmetry. RIGHT KIDNEY AND URETER: No mass, calculi or urinary tract obstruction. LEFT KIDNEY AND URETER: No mass, calculi or urinary tract obstruction. RETROPERITONEUM: No retroperitoneal adenopathy, hemorrhage or masses. BOWEL AND PERITONEAL CAVITY: No masses or inflammatory changes. No free fluid or peritoneal masses. APPENDIX: Not visualized. ABDOMINAL WALL: No masses. No hernias. BONY STRUCTURES: Stable compression fractures. 3-D IMAGING: Confirms the above findings. OTHER: No other significant finding. 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 Patent renal arteries, SMA, celiac axis. Gallstones with distended gallbladder. TECHNICAL DOCUMENTATION: JOB ID: [id number] Quality ID # [id number]: Final reports with documentation of one or more dose reduction techniques (e.g., Au tomated exposure control, adjustment of the mA and/or kV according to patient size, use of iterative reconstruction technique) 2010 [employer]- All Rights Reserved
--- NOTE | 2017-06-08 23:26 | ER Document Report ---
ED General - General Chief Complaint: High Blood Pressure Stated Complaint: BLOOD PRESSURE ISSUES, SIDE PAIN Time Seen by Provider: 06/08/17 19:31 Mode of Arrival: Ambulatory Information source: Patient Notes: 87-year-old female presents with complaints of right flank pain. Patient notes the pain has been ongoing intermittently for the past week. Denies any fevers or chills denies any nausea vomiting or diarrhea. Patient was seen by primary care physician and performed an x-ray and noted calcification of the aorta and patient was sent in for evaluation of the area. She has no abdominal pain midline denies any other concerns except for high blood pressure TRAVEL OUTSIDE OF THE [place] IN LAST 30 DAYS: No - HPI Onset: Last week Onset/Duration: Intermittent Quality of pain: Cramping Severity: Mild Pain Level: 1 Associated symptoms: Other Exacerbated by: Denies Relieved by: Denies Similar symptoms previously: Yes Recently seen / treated by doctor: Yes - Related Data Allergies/Adverse Reactions: No Known Allergies Allergy (Verified 06/08/17 18:08) Past Medical History - Social History Smoking Status: Never Smoker Cigarette use (# per day): No Chew tobacco use (# tins/day): No Smoking Education Provided: No Frequency of alcohol use: None Drug Abuse: None Family History: CAD Patient has suicidal ideation: No Patient has homicidal ideation: No - Past Medical History Cardiac Medical History: Reports: Hx Congestive Heart Failure, Hx Hypercholesterolemia Neurological Medical History: Reports: Hx Cerebrovascular Accident Renal/ Medical History: Reports: Hx End Stage Renal Disease - Stage 3 - Not on dialysis 04/01/17. Denies: Hx Peritoneal Dialysis Psychiatric Medical History: Denies: Hx Depression Past Surgical History: Reports: Hx Orthopedic Surgery - left hip, Hx Vascular Surgery - cva 5 years ago Review of Systems - Review of Systems Notes: REVIEW OF SYSTEMS: CONSTITUTIONAL : Denies fever, chills, or sweats. Denies recent illness. EENT: Denies eye, ear, throat, or mouth pain or symptoms. Denies nasal or sinus congestion or discharge. Denies throat, tongue, or mouth swelling or difficulty swallowing. CARDIOVASCULAR: Denies chest pain. Denies palpitations or racing or irregular heart beat. Denies ankle edema. RESPIRATORY: Denies cough, cold, or chest congestion. Denies shortness of breath, difficulty breathing, or wheezing. GASTROINTESTINAL: Admits to right flank pain GENITOURINARY: Denies difficulty urinating, painful urination, burning, frequency, blood in urine, or discharge. FEMALE GENITOURINARY: Denies vaginal bleeding, heavy or abnormal periods, irregular periods. Denies vaginal discharge or odor. MUSCULOSKELETAL: Denies back or neck pain or stiffness. Denies joint pain or swelling. SKIN: Denies rash, lesions or sores. HEMATOLOGIC : Denies easy bruising or bleeding. LYMPHATIC: Denies swollen, enlarged glands. NEUROLOGICAL: Denies confusion or altered mental status. Denies passing out or loss of consciousness. Denies dizziness or lightheadedness. Denies headache. Denies weakness or paralysis or loss of use of either side. Denies problems with gait or speech. Denies sensory loss, numbness, or tingling. Denies seizures. PSYCHIATRIC: Denies anxiety or stress. Denies depression, suicidal ideation, or homicidal ideation. ALL OTHER SYSTEMS REVIEWED AND NEGATIVE. PHYSICAL EXAMINATION: GENERAL: Well-appearing, well-nourished and in no acute distress. HEAD: Atraumatic, normocephalic. EYES: Pupils equal round and reactive to light, extraocular movements intact, conjunctiva are normal. ENT: Nares patent, oropharynx clear without exudates. Moist mucous membranes. NECK: Normal range of motion, supple without lymphadenopathy LUNGS: Breath sounds clear to auscultation bilaterally and equal. No wheezes rales or rhonchi. HEART: Regular rate and rhythm without murmurs ABDOMEN: Soft, minimally tender right upper quadrant, nondistended abdomen. No guarding, no rebound. No masses appreciated. Female : deferred Musculoskeletal: Normal range of motion, no pitting or edema. No cyanosis. NEUROLOGICAL: Cranial nerves grossly intact. Normal speech, normal gait. Normal sensory, motor exams PSYCH: Normal mood, normal affect. SKIN: Warm, Dry, normal turgor, no rashes or lesions noted. 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 Kincaid, he believes the patient's pain may be related to the gallbladder but given that she has no white count is not vomiting has no fevers and LFTs are normal that this could be performed outpatient. Patient will be given outpatient follow-up she is ecstatic that she is being discharged. Very strict return precautions have been provided to her After performing a Medical Screening Examination, I estimate there is LOW risk for ACUTE APPENDICITIS, BOWEL OBSTRUCTION, ACUTE CHOLECYSTITIS, PERFORATED DIVERTICULITIS, INCARCERATED HERNIA, PANCREATITIS, PELVIC INFLAMMATORY DISEASE, PERFORATED ULCER, ECTOPIC , or TUBO-OVARIAN ABSCESS, thus I consider the discharge disposition reasonable. Also, there is no evidence or peritonitis , sepsis, or toxicity. I have reevaluated this patient multiple times and no significant life threatening changes are noted. The patient and I have discussed the diagnosis and risks, and we agree with discharging home with close follow-up with the understanding that symptoms and presentations can change. We also discussed returning to the Emergency Department immediately if new or worsening symptoms occur. We have discussed the symptoms which are most concerning (e.g., bloody stool, fever, changing or worsening pain, vomiting) that necessitate immediate return. - Vital Signs Vital signs: Temp Pulse Resp BP Pulse Ox 98.9 F 103 H 16 168/111 H 91 L 06/08/17 18:32 06/08/17 18:32 06/08/17 18:32 06/08/17 18:32 06/08/17 18:32 - Laboratory Result Diagrams: 06/08/17 20:02 06/08/17 20:02 Laboratory results interpreted by me: 06/08/17 06/08/17 19:45 20:02 BUN 26 H Est GFR (Non-Af Amer) 52 L Calcium 10.6 H Ur Leukocyte Esterase TRACE H - Diagnostic Test Radiology reviewed: Image reviewed, Reports reviewed - Reports given to patient Discharge - Discharge Clinical Impression: Gallbladder disease, Elevated blood pressure reading Abdominal pain Qualifiers: Abdominal location: right upper quadrant Qualified Code(s): R10.11 - Right upper quadrant pain Condition: Stable Disposition: HOME, SELF-CARE Instructions: Gallbladder Disease ([facility]) Referrals: STEPHANIE MORFIN MD [Primary Care Provider] - Follow up as needed ABELARDO TEMPLE MD [ACTIVE STAFF] - Follow up tomorrow
--- NOTE | 2017-06-09 00:41 | PDOC CONSULTATION ---
Consultation Consult Date: 06/09/17 Consult reason:: Right lower back pains History of Present Illness Admission Date/PCP: STEPHANIE MORFIN MD History of Present Illness: LO HUBER is a 87 year old female who started c/o right lower back pains radiating to the RUQ with occasional nausea since 4 days ago. Denies fatte food intolerance though daughter,who lives with the patient, refrains from cooking fried food. CT scan of abdomen in the ER showed gallstones with distention. Past Medical History Cardiac Medical History: Reports: Congestive Heart Failure, Hyperlipidema Renal/ Medical History: Reports: End Stage Renal Disease - Stage 3 - Not on dialysis 04/01/17 Psychiatric Medical History: Denies: Depression Past Surgical History Past Surgical History: Reports: Orthopedic Surgery - left hip, Vascular Surgery - cva 5 years ago Social History Smoking Status: Never Smoker Frequency of Alcohol Use: None Hx Recreational Drug Use: No Drugs: None Hx Prescription Drug Abuse: No Family History Family History: CAD Parental Family History Reviewed: Yes - both parents of CHF Children Family History Reviewed: No Sibling(s) Family History Reviewed.: No Medication/Allergy Home Medications: Aspirin [Aspirin 81 mg Chewable Tablet] 81 mg PO DAILY 07/23/15 Atorvastatin Calcium [Lipitor] 40 mg PO DAILY 07/23/15 Allergies/Adverse Reactions: No Known Allergies Allergy (Verified 06/08/17 18:08) Review of Systems Constitutional: PRESENT: other - no fever/cills Eyes: PRESENT: other - no visual/hearing changes Nose, Mouth, and Throat: PRESENT: other - no sore throat Respiratory: PRESENT: other - no cough Gastrointestinal: PRESENT: abdominal pain, nausea Musculoskeletal: PRESENT: back pain Integumentary: PRESENT: other - no skin rash Neurological: PRESENT: other - no seizures Physical Exam Vital Signs: Temp Pulse Resp BP Pulse Ox 98.9 F 103 H 16 168/111 H 91 L 06/08/17 18:32 06/08/17 18:32 06/08/17 18:32 06/08/17 18:32 06/08/17 18:32 Intake & Output 06/07/17 06/08/17 06/09/17 06:59 06:59 06:59 Weight 57.27 kg General appearance: PRESENT: no acute distress Head exam: PRESENT: atraumatic Eye exam: PRESENT: conjunctiva pink Mouth exam: PRESENT: moist, tongue midline Neck exam: PRESENT: full ROM Respiratory exam: PRESENT: clear to auscultation addison Cardiovascular exam: PRESENT: RRR Pulses: PRESENT: normal radial pulses Vascular exam: PRESENT: normal capillary refill GI/Abdominal exam: PRESENT: soft, tenderness - RUQ and opposite right lower back Rectal exam: PRESENT: deferred Extremities exam: PRESENT: full ROM Musculoskeletal exam: PRESENT: ambulatory - with walker Neurological exam: PRESENT: alert, oriented to person, oriented to place, oriented to time, oriented to situation Psychiatric exam: PRESENT: appropriate affect Skin exam: PRESENT: normal color, warm Results Laboratory Results: 06/08/17 20:02 06/08/17 20:02 06/08/17 06/08/17 06/08/17 19:45 20:02 20:02 WBC 8.8 RBC 4.68 Hgb 15.0 Hct 43.8 MCV 93 MCH 32.1 MCHC 34.3 RDW 13.6 Plt Count 240 Seg Neutrophils % 54.7 Lymphocytes % 33.9 Monocytes % 7.9 Eosinophils % 2.3 Basophils % 1.2 Absolute Neutrophils 4.8 Absolute Lymphocytes 3.0 Absolute Monocytes 0.7 Absolute Eosinophils 0.2 Absolute Basophils 0.1 Sodium 139.6 Potassium 4.4 Chloride 99 Carbon Dioxide 28 Anion Gap 13 BUN 26 H Creatinine 1.01 Est GFR ( Amer) > 60 Est GFR (Non-Af Amer) 52 L Glucose 100 Calcium 10.6 H Total Bilirubin 0.6 AST 29 ALT 26 Alkaline Phosphatase 92 Total Protein 7.9 Albumin 4.7 Lipase 134.4 Urine Color YELLOW Urine Appearance CLEAR Urine pH 5.0 Ur Specific Tyner 1.011 Urine Protein NEGATIVE Urine Glucose (UA) NEGATIVE Urine Ketones NEGATIVE Urine Blood NEGATIVE Urine Nitrite NEGATIVE Ur Leukocyte Esterase TRACE H Urine WBC (Auto) 1 Urine RBC (Auto) 0 Impressions: Abdomen/Pelvis CTA 06/08/17 19:36 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 Patent renal arteries, SMA, celiac axis. Gallstones with distended gallbladder. 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 No dissection. No pulmonary emboli. Assessment & Plan - Time Time Spent: 30 to 50 Minutes - Plan Summary Plan Summary: Patient wants to go home. Pains primarily at the right lower back is tolerabe .Told her she can go but if pains worsen or develops N/V then she has to come back to the ER. Otherwise, follow up at the surgical clinic this week.
[2017-06-09 01:01] VITALS: BP 170/92
== END 2017-06-09 00:50 | disposition home or self-care (01) ==
LOC: ER 18:07
DX: K82.9 Disease of gallbladder, unspecified (principal); R10.11 Right upper quadrant pain; R03.0 Elevated blood-pressure reading, without diagnosis of hypertension
CPT/HCPCS: 36415; 71275; 74174; 80048; 80076; 81001; 83690; 85025; 99285

== ENCOUNTER 2017-06-09 10:06 | Inpatient (IN) | payer MEDICARE ==
[~2017-06-09 10:06] MED LIST: GLYCOPYRROLATE INJ 0.4 MG/2 ML VIAL ONE; NEOSTIGMINE METHYLSULFATE 10 MG/10 ML VIAL ONE; ONDANSETRON HCL INJ/PF 4 MG/2 ML SDV ONE; ROCURONIUM BROMIDE INJ 50 MG/5 ML VIAL IV ONE; SUCCINYLCHOLINE CHLORIDE INJ 200 MG/10 ML VIAL ONE
--- NOTE | 2017-06-09 10:36 | ER Document Report ---
ED Medical Screen (RME) - General Chief Complaint: Abdominal Pain Stated Complaint: ABDOMINAL PAIN Time Seen by Provider: 06/09/17 10:34 Mode of Arrival: Wheelchair Information source: Patient, Relative TRAVEL OUTSIDE OF THE [place] IN LAST 30 DAYS: No - HPI Patient complains to provider of: Gallbladder pain Onset: Yesterday - pt seen here yesterday for cholecystitis and wsa told to return if he pain increases -- pt. returns to "have surgery done." - Related Data Allergies/Adverse Reactions: No Known Allergies Allergy (Verified 06/08/17 18:08) Past Medical History - Past Medical History Cardiac Medical History: Reports: Hx Congestive Heart Failure, Hx Hypercholesterolemia Neurological Medical History: Reports: Hx Cerebrovascular Accident Renal/ Medical History: Reports: Hx End Stage Renal Disease - Stage 3 - Not on dialysis 04/01/17. Denies: Hx Peritoneal Dialysis Psychiatric Medical History: Denies: Hx Depression Past Surgical History: Reports: Hx Orthopedic Surgery - left hip, Hx Vascular Surgery - cva 5 years ago - Immunizations History of Influenza Vaccine for 02/2017 - 07/2017 Season: Yes Influenza Administration Date for 02/2017 - 07/2017 Season: 02/25/17 Physical Exam - Vital signs Vitals: Temp Pulse Resp BP Pulse Ox 98.2 F 85 16 111/66 100 06/09/17 10:20 06/09/17 10:20 06/09/17 10:20 06/09/17 10:20 06/09/17 10:20 Course - Vital Signs Vital signs: Temp Pulse Resp BP Pulse Ox 98.2 F 85 16 111/66 100 06/09/17 10:20 06/09/17 10:20 06/09/17 10:20 06/09/17 10:20 06/09/17 10:20
[2017-06-09 11:25] LABS: ABSOLUTE BASOPHILS # (AUTO) 0.1 10^3/uL (0.0-0.2); ABSOLUTE EOSINOPHILS # (AUTO) 0.2 10^3/uL (0.0-0.6); ABSOLUTE LYMPHOCYTES (AUTO) 1.6 10^3/uL (0.5-4.7); ABSOLUTE MONOCYTES (AUTO) 0.8 10^3/uL (0.1-1.4); BASOPHILS % (AUTO) 1.2 % (0-2); EOSINOPHILS % (AUTO) 2.7 % (0-6); HEMATOCRIT 42.3 % (36.0-47.0); HEMOGLOBIN 14.2 g/dL (12.0-15.5); LYMPHOCYTES % (AUTO) 21.1 % (13-45); MEAN CORPUSCULAR HEMOGLOBIN 31.7 pg (27.0-33.4); MEAN CORPUSCULAR HGB CONC 33.7 g/dL (32.0-36.0); MEAN CORPUSCULAR VOLUME 94 fl (80-97); MONOCYTES % (AUTO) 10.1 % (3-13); PLATELET COUNT 239 10^3/uL (150-450); RED BLOOD COUNT 4.49 10^6/uL (3.72-5.28); RED CELL DISTRIBUTION WIDTH 13.8 % (11.5-14.0); SEGMENTED NEUTROPHILS % (AUTO) 64.9 % (42-78); TOTAL CELLS COUNTED % (AUTO) 100 %; WHITE BLOOD COUNT 7.7 10^3/uL (4.0-10.5)
[2017-06-09 11:47] LABS: ALANINE AMINOTRANSFERASE 27 U/L (9-52); ALBUMIN 4.3 g/dL (3.5-5.0); ALKALINE PHOSPHATASE 81 U/L (38-126); ANION GAP 14 (5-19); ASPARTATE AMINO TRANSFERASE 23 U/L (14-36); BILIRUBIN,DIRECT 0.3 mg/dL (0.0-0.4); BILIRUBIN,TOTAL 0.6 mg/dL (0.2-1.3); BLOOD UREA NITROGEN 28 mg/dL (7-20); CALCIUM 10.5 mg/dL (8.4-10.2); CARBON DIOXIDE 28 mmol/L (22-30); CHLORIDE 99 mmol/L (98-107); GLUCOSE 86 mg/dL (75-110); POTASSIUM 4.3 mmol/L (3.6-5.0); SODIUM 140.9 mmol/L (137-145); TOTAL PROTEIN 7.3 g/dL (6.3-8.2)
[2017-06-09] MEDS ORDERED: NORMAL SALINE 1000 ML 1,000 ML IV ONE (13:24)
--- NOTE | 2017-06-09 13:28 | ER Document Report ---
ED GI/ - General Chief Complaint: Abdominal Pain Stated Complaint: ABDOMINAL PAIN Time Seen by Provider: 06/09/17 10:34 Mode of Arrival: Wheelchair Information source: Patient Notes: Very affluent 87-year-old female who presents today for repeat visit after being seen yesterday. Patient was sent here yesterday after the patient has had 5 days of some white back pain radiating to right upper quadrant. She actually denies any nausea, vomiting, fevers, chest pain, cough, shortness of breath, or diarrhea. Patient had an x-ray as an outpatient which showed some calcifications of the aorta sure she was sent here for further evaluation. At that time she had a CT scan of the abdomen and pelvis which showed multiple gallstones as well as gallbladder distention. Normal white count. Normal liver panel. The general surgeon came and evaluated the patient supposedly wanted the patient to stay to have the gallbladder removed, but the patient wanted to go home and see if she could follow-up as an outpatient. Patient returns today for some continued pain. She denies association with food. TRAVEL OUTSIDE OF THE [place] IN LAST 30 DAYS: No - HPI Patient complains to provider of: Other - See above Onset: Other - See above Timing/Duration: Gradual Quality of pain: Achy Severity at maximum: Moderate Severity in ED: Mild Pain Level: 1 Location: Other - See above Vaginal bleeding (Compared to normal period): None Sexual history: Inactive Associated symptoms: Other - See above Exacerbated by: Denies Relieved by: Denies Similar symptoms previously: Yes Recently seen / treated by doctor: Yes - Related Data Allergies/Adverse Reactions: No Known Allergies Allergy (Verified 06/08/17 18:08) Past Medical History - General Information source: Patient, Relative - Social History Smoking Status: Never Smoker Cigarette use (# per day): No Chew tobacco use (# tins/day): No Smoking Education Provided: No Frequency of alcohol use: None Drug Abuse: None Family History: CAD Patient has suicidal ideation: No Patient has homicidal ideation: No - Past Medical History Cardiac Medical History: Reports: Hx Congestive Heart Failure, Hx Hypercholesterolemia Neurological Medical History: Reports: Hx Cerebrovascular Accident Renal/ Medical History: Reports: Hx End Stage Renal Disease - Stage 3 - Not on dialysis 04/01/17. Denies: Hx Peritoneal Dialysis Psychiatric Medical History: Denies: Hx Depression Past Surgical History: Reports: Hx Orthopedic Surgery - left hip, Hx Vascular Surgery - cva 5 years ago Review of Systems - Review of Systems Constitutional: denies: Fever EENT: denies: Eye discharge, Nose discharge Cardiovascular: denies: Chest pain, Palpitations Respiratory: denies: Short of breath Gastrointestinal: denies: Vomiting Genitourinary: denies: Dysuria Musculoskeletal: denies: Leg swelling Skin: Other - no hives. denies: Rash Neurological/Psychological: Other - no slurred speech -: Yes All other systems reviewed and negative Physical Exam - Vital signs Vitals: Temp Pulse Resp BP Pulse Ox 98.2 F 85 16 111/66 100 06/09/17 10:20 06/09/17 10:20 06/09/17 10:20 06/09/17 10:20 06/09/17 10:20 Notes: Reviewed vital signs and nursing note as charted by RN. CONSTITUTIONAL: Alert and oriented and responds appropriately to questions. Well -appearing; well-nourished HEAD: Normocephalic; atraumatic EYES: Sclerae non-icteric ENT: Normal nose; no rhinorrhea; moist mucous membranes; pharynx without lesions noted NECK: Supple without meningismus; non-tender CARD: Regular rate and rhythm; no murmurs RESP: Normal chest excursion without splinting or tachypnea; breath sounds clear and equal bilaterally ABD/GI: Normal bowel sounds; non-distended; mild tenderness to the right upper quadrant without rebound or guarding. Negative Cleaning sign. No abdominal masses or bruits to auscultation BACK: The back appears normal and is non-tender to palpation, there is no CVA tenderness EXT: Normal ROM in all joints; non-tender to palpation; no cyanosis, no effusions, no edema SKIN: No acute lesions noted NEURO: Moves all extremities equally; Motor and sensory function intact PSYCH: The patient's mood and manner are appropriate. Grooming and personal hygiene are appropriate. Course - Re-evaluation Re-evalutation: 06/09/17 13:28 Given the history and physical examination with a CT yesterday, basic labs and abdominal labs are repeated. Still a normal white blood cell count. I have consulted to general surgeon neon sign servicer for evaluation of the patient. 06/09/17 13:52 Repeat labs as recorded. The surgeon has seen and evaluated the patient. He would like to admit the patient to the hospitalist given the patient's comorbidities with continued surgical reevaluations. - Vital Signs Vital signs: Temp Pulse Resp BP Pulse Ox 98.2 F 85 16 111/66 100 06/09/17 10:20 06/09/17 10:20 06/09/17 10:20 06/09/17 10:20 06/09/17 10:20 - Laboratory Result Diagrams: 06/09/17 10:44 06/09/17 10:44 Laboratory results interpreted by me: 06/09/17 10:44 BUN 28 H Est GFR ( Amer) 57 L Est GFR (Non-Af Amer) 47 L Calcium 10.5 H Discharge - Discharge Clinical Impression: Symptomatic cholelithiasis Condition: Fair Disposition: ADMITTED INPATIENT Admitting Provider: Hospitalist Unit Admitted: Medical Floor
[2017-06-09] MEDS ORDERED: RINGERS SOLUTION,LACTATED 1,000 ML IV PRN ×2 (13:56→14:30)
[2017-06-09] MEDS ORDERED: CEFAZOLIN 2 GM/D5W RTU 2 GM/50 ML RTUPB IV ONE (13:57)
--- NOTE | 2017-06-09 14:10 | PDOC CONSULTATION ---
Consultation Consult Date: 06/09/17 Consult reason:: Patient seen at the request of Dr. Ric Reyes for symptomatic cholelithiasis History of Present Illness Admission Date/PCP: CHACHA MAURICE MD History of Present Illness: LO HUBER is a 87 year old female Brought to the emergency department for the second time and 12 hours by her daughter because of abdominal pain right upper quadrant associated with anorexia but no nausea or vomiting. She was evaluated last p.m. by Dr. Kincaid , surgicalist, who diagnosed her with symptomatic cholelithiasis with cholecystitis based on history, and positive CT scan findings consistent with distended gallbladder with multiple gallstones. Recommended admission and subsequent operation but the patient wanted to go home. She returns with her daughter with same complaints. She is not in extremis. Laboratory profile unremarkable. Surgery was reconsulted, and the patient is advised to come into the hospital in undergo planned procedure. Patient denies of vomiting. She did not know she had gallstones until last night. Denies history of gastrointestinal problems. She is colonoscopy according to her daughter. 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 Gama britton, June 2015, no complx, Vascular Surgery - cva 5 years ago, Other Social History Smoking Status: Never Smoker Frequency of Alcohol Use: None Hx Recreational Drug Use: No Drugs: None Hx Prescription Drug Abuse: No Family History Family History: CAD Parental Family History Reviewed: Yes Children Family History Reviewed: Yes Sibling(s) Family History Reviewed.: Yes Medication/Allergy Home Medications: Aspirin [Aspirin 81 mg Chewable Tablet] 81 mg PO DAILY 07/23/15 Atorvastatin Calcium [Lipitor] 40 mg PO DAILY 07/23/15 Allergies/Adverse Reactions: No Known Allergies Allergy (Verified 06/08/17 18:08) Review of Systems Constitutional: ABSENT: chills, fever(s), headache(s), weight gain, weight loss Eyes: ABSENT: visual disturbances Ears: ABSENT: hearing changes Cardiovascular: ABSENT: chest pain, dyspnea on exertion, edema, orthropnea, palpitations Respiratory: ABSENT: cough, hemoptysis Gastrointestinal: PRESENT: other - As per HPI Integumentary: PRESENT: other - Has rash on her legs, chronic Neurological: PRESENT: weakness - Side status post TIA Physical Exam Vital Signs: Temp Pulse Resp BP Pulse Ox 98.2 F 85 16 111/66 100 06/09/17 10:20 06/09/17 10:20 06/09/17 10:20 06/09/17 10:20 06/09/17 10:20 Intake & Output 06/08/17 06/09/17 06/10/17 06:59 06:59 06:59 Weight 57.2 kg General appearance: PRESENT: no acute distress Head exam: PRESENT: normocephalic Eye exam: PRESENT: EOMI Ear exam: PRESENT: normal external ear exam Mouth exam: PRESENT: moist Neck exam: PRESENT: other - No bruits; scar left neck Respiratory exam: PRESENT: other - Fairly clear bilaterally Cardiovascular exam: PRESENT: RRR Pulses: PRESENT: normal carotid pulses, normal radial pulses, normal femoral pulses GI/Abdominal exam: PRESENT: other - In the right upper quadrant with minimal guarding. No peritoneal Rectal exam: PRESENT: deferred Musculoskeletal exam: PRESENT: other - Walks with walker with assistance Neurological exam: PRESENT: alert, altered, awake, oriented to person, oriented to place, oriented to time, oriented to situation Skin exam: PRESENT: dry Results Laboratory Results: 06/09/17 10:44 06/09/17 10:44 06/09/17 06/09/17 10:44 10:44 WBC 7.7 RBC 4.49 Hgb 14.2 Hct 42.3 MCV 94 MCH 31.7 MCHC 33.7 RDW 13.8 Plt Count 239 Seg Neutrophils % 64.9 Lymphocytes % 21.1 Monocytes % 10.1 Eosinophils % 2.7 Basophils % 1.2 Absolute Neutrophils 5.0 Absolute Lymphocytes 1.6 Absolute Monocytes 0.8 Absolute Eosinophils 0.2 Absolute Basophils 0.1 Sodium 140.9 Potassium 4.3 Chloride 99 Carbon Dioxide 28 Anion Gap 14 BUN 28 H Creatinine 1.10 Est GFR ( Amer) 57 L Est GFR (Non-Af Amer) 47 L Glucose 86 Calcium 10.5 H Total Bilirubin 0.6 AST 23 ALT 27 Alkaline Phosphatase 81 Total Protein 7.3 Albumin 4.3 Assessment & Plan - Diagnosis (1) Symptomatic cholelithiasis Is this a current diagnosis for this admission?: Yes Plan: This is a second visit in less than 1 day for the patient was symptomatic cholelithiasis with cholecystitis; she is reasonably functional for an 87-year- old and deserves appropriate intervention. If she should undergo laparoscopic, possible open cholecystectomy. Plan : 1. I recommended the patient be admitted to the hospitalist service with the surgical is consulting 2. Check an EKG; have hospitalist evaluate patient from a preoperative standpoint. Patient may need blood pressure controlled July 2015 she apparently had an ejection fraction of 70%, no complications the time of her ORIF left hip. . I discussed the above plan with the patient and her daughter, I believe they understand and agree to proceed. Hopefully we can perform the planned operation later today. (2) CKD (chronic kidney disease) stage 3, GFR 30-59 ml/min Is this a current diagnosis for this admission?: Yes (3) Hemiparesis affecting left side as late effect of cerebrovascular accident Is this a current diagnosis for this admission?: Yes (4) Elevated blood pressure reading Is this a current diagnosis for this admission?: Yes (5) Hyperlipidemia Is this a current diagnosis for this admission?: Yes (6) Aortic disease Is this a current diagnosis for this admission?: Yes - Time Time Spent: 50 to 70 Minutes Smoking Cessation Education: 3 to 10 minutes Medications reviewed and adjusted accordingly: Yes Anticipated discharge: Home - Inpatient Certification Based on my medical assessment, after consideration of the patient's comorbidities, presenting symptoms, or acuity I expect that the services needed warrant INPATIENT care.: Yes I certify that my determination is in accordance with my understanding of Medicare's requirements for reasonable and necessary INPATIENT services [42 CFR 412.3e].: Yes Medical Necessity: Need For IV Fluids
[2017-06-09] MEDS ORDERED: OXYCODONE-ACETAMINOPHEN 5-325 MG TABLET PO PRN (14:21)
[2017-06-09] MEDS ORDERED: ZOLPIDEM TARTRATE 5 MG TABLET PO PRN (14:21)
[2017-06-09] MEDS ORDERED: MORPHINE SULFATE 10 MG/ML INJ IV PRN (14:21)
[2017-06-09] MEDS ORDERED: ONDANSETRON HCL INJ/PF 4 MG/2 ML SDV IV PRN ×2 (14:21→16:43)
[2017-06-09] MEDS ORDERED: ACETAMINOPHEN 650 MG SUPP.RECT PR PRN (14:21)
--- NOTE | 2017-06-09 15:10 | PDOC H&P ---
History of Present Illness Admission Date/PCP: CHACHA MAURICE MD History of Present Illness: LO HUBER is a 87 year old female returns back to emergency room since pain on her right side returned back. Patient has been experiencing right- sided pain for a week and was advised by her primary care provider to come to emergency room to be further evaluated. She had CT of the abdomen done which demonstrated a distended gallbladder with multiple gallstones. At that time she was evaluated by Dr. Kincaid who advised her to be hospitalized for surgery. Patient states that she declined because she wanted to go home with her daughter since it was late. Patient was evaluated by Dr. Kincaid and he contacted our service due to patient 's comorbidities for patient to be admitted under our service Past Medical History Cardiac Medical History: Reports: Congestive Heart Failure, Hyperlipidema Pulmonary Medical History: Reports: None EENT Medical History: Reports: None Neurological Medical History: Reports: None Endocrine Medical History: Reports: None Renal/ Medical History: Reports: Chronic Kidney Disease Malignancy Medical History: Reports: None GI Medical History: Reports: None Musculoskeltal Medical History: Reports: None Skin Medical History: Reports: None Psychiatric Medical History: Denies: Depression Traumatic Medical History: Reports: None Hematology: Reports: None Infectious Medical History: Reports: None Past Surgical History Past Surgical History: Reports: Orthopedic Surgery - Left hip femoral fracture ORIF Dr. Gama britton, June 2015, no complx, Vascular Surgery - cva 5 years ago, Other Social History Information Source: Patient Smoking Status: Never Smoker Frequency of Alcohol Use: None Hx Recreational Drug Use: No Drugs: None Hx Prescription Drug Abuse: No - Advance Directive Resuscitation Status: Do Not Resuscitate Family History Family History: CAD Parental Family History Reviewed: Yes Children Family History Reviewed: Yes Sibling(s) Family History Reviewed.: Yes Medication/Allergy Home Medications: Aspirin [Aspirin 81 mg Chewable Tablet] 81 mg PO DAILY 07/23/15 Atorvastatin Calcium [Lipitor] 40 mg PO QHS 07/23/15 Allergies/Adverse Reactions: No Known Allergies Allergy (Verified 06/08/17 18:08) Review of Systems Constitutional: PRESENT: weakness. ABSENT: chills, fever(s) Eyes: ABSENT: visual disturbances Ears: ABSENT: hearing changes Cardiovascular: ABSENT: chest pain, dyspnea on exertion, palpitations Respiratory: ABSENT: dyspnea Gastrointestinal: PRESENT: abdominal pain. ABSENT: nausea, vomiting Genitourinary: ABSENT: difficulty urinating, dysuria Physical Exam Vital Signs: Temp Pulse Resp BP Pulse Ox 98.2 F 85 16 111/66 100 06/09/17 10:20 06/09/17 10:20 06/09/17 10:20 06/09/17 10:20 06/09/17 10:20 Intake & Output 06/08/17 06/09/17 06/10/17 06:59 06:59 06:59 Weight 57.2 kg General appearance: PRESENT: no acute distress, well-developed, well-nourished Head exam: PRESENT: atraumatic, normocephalic Eye exam: PRESENT: conjunctiva pink, EOMI, PERRLA Neck exam: PRESENT: full ROM. ABSENT: JVD, tenderness, thyromegaly Respiratory exam: PRESENT: clear to auscultation addison Cardiovascular exam: PRESENT: RRR, systolic murmur Vascular exam: PRESENT: normal capillary refill Extremities exam: ABSENT: joint swelling, pedal edema Neurological exam: PRESENT: alert, oriented to person, oriented to place, oriented to time Psychiatric exam: PRESENT: appropriate affect, normal mood Results Laboratory Results: 06/09/17 10:44 06/09/17 10:44 06/09/17 06/09/17 10:44 10:44 WBC 7.7 RBC 4.49 Hgb 14.2 Hct 42.3 MCV 94 MCH 31.7 MCHC 33.7 RDW 13.8 Plt Count 239 Seg Neutrophils % 64.9 Lymphocytes % 21.1 Monocytes % 10.1 Eosinophils % 2.7 Basophils % 1.2 Absolute Neutrophils 5.0 Absolute Lymphocytes 1.6 Absolute Monocytes 0.8 Absolute Eosinophils 0.2 Absolute Basophils 0.1 Sodium 140.9 Potassium 4.3 Chloride 99 Carbon Dioxide 28 Anion Gap 14 BUN 28 H Creatinine 1.10 Est GFR ( Amer) 57 L Est GFR (Non-Af Amer) 47 L Glucose 86 Calcium 10.5 H Total Bilirubin 0.6 AST 23 ALT 27 Alkaline Phosphatase 81 Total Protein 7.3 Albumin 4.3 Assessment & Plan - Diagnosis (1) Aortic aneurysm Qualifiers: Aortic location: abdominal aorta Is this a current diagnosis for this admission?: Yes Plan: Will start beta blockade in a.m. and lisinopril (2) Elevated blood pressure reading Is this a current diagnosis for this admission?: Yes Plan: Will place on lisinopril and Toprol in a.m. (3) Gallbladder disease Is this a current diagnosis for this admission?: Yes Plan: Seen by surgery and accordingly will proceed with surgery pending to anesthesia recommendation. Consult cardiology service for preop evaluation (4) Heart murmur on physical examination Is this a current diagnosis for this admission?: Yes Plan: Consistent with aortic stenosis. Will consult cardiology service for preop evaluation (5) CKD (chronic kidney disease) stage 3, GFR 30-59 ml/min Is this a current diagnosis for this admission?: Yes Plan: To trend - Time Time Spent: 50 to 70 Minutes Medications reviewed and adjusted accordingly: Yes Anticipated discharge: Home Within: within 48 hours - Inpatient Certification Based on my medical assessment, after consideration of the patient's comorbidities, presenting symptoms, or acuity I expect that the services needed warrant INPATIENT care.: Yes I certify that my determination is in accordance with my understanding of Medicare's requirements for reasonable and necessary INPATIENT services [42 CFR 412.3e].: Yes Medical Necessity: Need for Surgery
[2017-06-09] MEDS ORDERED: FENTANYL CITRATE INJ/PF 100 MCG/2 ML AMPUL ONE ×2 (15:36→15:37)
[2017-06-09] MEDS ORDERED: ACETAMINOPHEN 100 ML IV ONE (15:37)
[2017-06-09] MEDS ORDERED: PROPOFOL INJ 200 MG/20 ML VIAL IV ONE (15:37)
[2017-06-09] MEDS ORDERED: MIDAZOLAM 2 MG/2 ML INJ ONE (15:37)
[2017-06-09] MEDS ORDERED: BUPIVACAINE HCL 0.25 % INJ/PF (2.5 MG/1 ML) 30 ML VIAL ONE (16:02)
--- NOTE | 2017-06-09 16:41 | EKG REPORT ---
SEVERITY:- ABNORMAL ECG - SINUS RHYTHM LEFT AXIS DEVIATION LVH WITH SECONDARY REPOLARIZATION ABNORMALITY : Confirmed by: Abdirashid Coy MD 09-Jun-2017 16:40:35
--- NOTE | 2017-06-09 16:43 | Operative Report ---
Operative Report DATE OF SURGERY: 06/09/17 PREOPERATIVE DIAGNOSIS: Symptomatic cholelithiasis with cholecystitis POSTOPERATIVE DIAGNOSIS: Same OPERATION: Laparoscopic cholecystectomy SURGEON: ABELARDO TEMPLE ANESTHESIA: GA TISSUE REMOVED OR ALTERED: 1 gallbladder with contents COMPLICATIONS: None ESTIMATED BLOOD LOSS: Scant INTRAOPERATIVE FINDINGS: See below PROCEDURE: After obtaining informed consent, the patient was taken to the operating room. General Anesthesia was induced; the arms were extended, and the abdomen was exposed, and prepped and draped in a sterile fashion. Instrumentation was set up for laparoscopic cholecystectomy. Surgical plan and surgical timeout were conducted. A vertical incision was made above the umbilicus, and a verres needle was inserted uneventfully into the peritoneal cavity. Pneumoperitoneum was established. The verres needle was removed and a 5 mm trocar was inserted and a 5 mm flexible laparoscope was inserted. Visualization of the peritoneal cavity confirmed safe uneventful entry. Under direct visualization 3 additional 5 mm ports were established, one in the subxiphoid position and second in the subcostal position. Gallbladder was markedly distended therefore it was aspirated of approximately 100 cc of bile with the laparoscopic trocar, thereby decompressing it. Visualization of the hepatobiliary anatomy revealed no anatomic variations. A grasper was placed on the fundus of the gallbladder and the gallbladder is elevated over the right surface of the liver; a second grasper was used to grasp the infundibulum of the gallbladder. The neck of the gallbladder and junction with the cystic duct was dissected out. The Cystic artery was in its usual location medial and cephalad to the cystic duct. The cystic artery was surrounded with a right angle clamp, clipped twice proximally and divided with laparoscopic scissors. We now opened the triangle of Calot by dividing the peritoneal reflection on both the medial and lateral sides of the cystic duct infundibular junction. The critical view was obtained. We now milked the cystic duct of any possible stones, clipped the cystic duct approximately 2 times once distally and divided with scissors. Some bleeding from the liver edge which was managed successfully with cautery. The gallbladder was now removed from the undersurface of the liver using hook cautery dissection. Graspers were repositioned and the gallbladder was removed uneventfully from the abdominal cavity through the super umbilical port site incision. The specimen was examined, then passed off to pathology for permanent analysis. We returned to the peritoneal cavity check for bleeding, and evidence of bile leak, and there was none. We Confirmed satisfactory placement of clips on cystic duct and cystic artery were secured . However there was some oozing coming from the transected cystic duct stump despite the clips being in good position. Therefore we placed a 0 PDS Endoloop proximal to the previously placed clips on the cystic duct, thereby repairing the problem, with no further bile leaking from the transected cystic duct stump. At this point we felt the operation was complete. The subcutaneous tissue was then anesthetized with quarter percent Marcaine Sponge and needle counts are correct. All ports removed under direct visualization pneumoperitoneum evacuated, and 5 mm port wounds closed with 3-0 Vicryl suture, benzoin and Steri-Strips. The patient was extubated, and taken to the recovery room in stable condition.
[2017-06-09] MEDS ORDERED: FLUMAZENIL INJ 0.5 MG/5 ML VIAL ONE (16:44)
[2017-06-09] MEDS ORDERED: NALOXONE HCL INJ/PF 0.4 MG/1 ML SDV ONE (16:47)
[2017-06-09] MEDS ORDERED: METOPROLOL TARTRATE PF/INJ 5 MG/5 ML SDV IV ONE (17:08)
[2017-06-09] MEDS: METOPROLOL TARTRATE PF/INJ 5 MG/5 ML SDV IV ONE ×2 (17:10→21:14)
[2017-06-09] MEDS: MORPHINE SULFATE 10 MG/ML INJ IV ONE ×2 (17:15→21:14)
[2017-06-09] MEDS ORDERED: NITROGLYCERIN 0.4 MG/TAB 25 TAB/BOTTLE ONE (17:15)
[2017-06-09] MEDS ORDERED: MORPHINE SULFATE 10 MG/ML INJ ONE (17:15)
[2017-06-09] MEDS: NITROGLYCERIN 0.4 MG/TAB 25 TAB/BOTTLE SL ONE ×2 (17:17→21:14)
[2017-06-09] MEDS ORDERED: HYDRALAZINE HCL INJ/PF 20 MG/1 ML SDV ONE (17:33)
[2017-06-09] MEDS: DOCUSATE SODIUM 100 MG CAPSULE PO SCH (21:14)
[2017-06-10 06:54] LABS: ABSOLUTE BASOPHILS # (AUTO) 0.1 10^3/uL (0.0-0.2); ABSOLUTE EOSINOPHILS # (AUTO) 0.2 10^3/uL (0.0-0.6); ABSOLUTE LYMPHOCYTES (AUTO) 1.2 10^3/uL (0.5-4.7); ABSOLUTE MONOCYTES (AUTO) 0.8 10^3/uL (0.1-1.4); ABSOLUTE NEUT (AUTO) 5.8 10^3/uL (1.7-8.2); BASOPHILS % (AUTO) 0.9 % (0-2); HEMATOCRIT 37.6 % (36.0-47.0); HEMOGLOBIN 12.5 g/dL (12.0-15.5); LYMPHOCYTES % (AUTO) 15.5 % (13-45); MEAN CORPUSCULAR HEMOGLOBIN 31.4 pg (27.0-33.4); MEAN CORPUSCULAR HGB CONC 33.3 g/dL (32.0-36.0); MEAN CORPUSCULAR VOLUME 94 fl (80-97); MONOCYTES % (AUTO) 9.9 % (3-13); PLATELET COUNT 162 10^3/uL (150-450); RED BLOOD COUNT 3.99 10^6/uL (3.72-5.28); RED CELL DISTRIBUTION WIDTH 13.7 % (11.5-14.0); SEGMENTED NEUTROPHILS % (AUTO) 71.7 % (42-78); TOTAL CELLS COUNTED % (AUTO) 100 %; WHITE BLOOD COUNT 8.1 10^3/uL (4.0-10.5)
[2017-06-10 07:19] LABS: ANION GAP 9 (5-19); BLOOD UREA NITROGEN 27 mg/dL (7-20); CALCIUM 9.5 mg/dL (8.4-10.2); CARBON DIOXIDE 26 mmol/L (22-30); CHLORIDE 103 mmol/L (98-107); GLUCOSE 94 mg/dL (75-110); POTASSIUM 4.4 mmol/L (3.6-5.0); SODIUM 137.6 mmol/L (137-145)
[2017-06-10] MEDS ORDERED: LISINOPRIL 5 MG TABLET PO SCH (10:00)
[2017-06-10] MEDS ORDERED: ASPIRIN 81 MG TABLET, CHEWABLE PO SCH (10:00)
[2017-06-10] MEDS ORDERED: DOCUSATE SODIUM 100 MG CAPSULE PO SCH (10:00)
[2017-06-10] MEDS ORDERED: METOPROLOL SUCCINATE 50 MG TAB.SR.24H PO SCH (10:00)
[2017-06-10] MEDS: DOCUSATE SODIUM 100 MG CAPSULE PO SCH (10:07)
--- NOTE | 2017-06-10 12:50 | PDOC DISCHARGE SUMMARY ---
General - Admit/Disc Date/PCP Admission Date/Primary Care Provider: 06/09/17 14:50 CHACHA MAURICE MD Discharge Date: 06/10/17 - Discharge Diagnosis (1) Symptomatic cholelithiasis Is this a current diagnosis for this admission?: Yes Summary: Patient has been experiencing right-sided pain for a week. CT abdomen demonstrated a distended gallbladder with multiple gallstones. Taken to OR by general surgery (Dr Tee) who performed lap cholecystectomy without complications. Today is POD #1. Mild pain, incisions C/D/I, and tolerating PO diet. NO other complaints. - Follow up with gen surgery as outpatient for post surgical follow up - OTC tylenol for pain control (2) Aortic aneurysm Is this a current diagnosis for this admission?: Yes Summary: Incidental finding on CT scan. Noted to be 4.0cm, asymptomatic. - No urgent indication for intervention - Would repeat abdominal U/S in 6 months to assess for changes in size - If concern due to increasing size or new symptoms, will need to be evaluated by vascular surgery - Continue ASA 81mg daily and Atorvastatin 40mg qhs - Should be followed by PCP (3) HTN (hypertension) Is this a current diagnosis for this admission?: Yes Summary: Noted to have elevated SBP at admission. Likely has essential HTN and also due to pain - BP controlled during admission with Lisinopril 5mg daily and Toprol XL. - Scripts given for home - Closely monitor BP at home and avoid hypotension - Follow up with PCP for blood pressure check - Additional Information Resuscitation Status: Full Code Discharge Diet: Cardiac Discharge Activity: Activity As Tolerated Prescriptions: Lisinopril [Prinivil 5 mg Tablet] 5 mg PO DAILY #30 tablet Metoprolol Succinate [Toprol Xl 25 mg Tab.sr] 25 mg PO DAILY #30 tab.sr.24h Home Medications: Aspirin [Aspirin 81 mg Chewable Tablet] 81 mg PO DAILY 07/23/15 Atorvastatin Calcium [Lipitor] 40 mg PO QHS 07/23/15 Lisinopril [Prinivil 5 mg Tablet] 5 mg PO DAILY #30 tablet 06/10/17 Metoprolol Succinate [Toprol Xl 25 mg Tab.sr] 25 mg PO DAILY #30 tab.sr.24h History of Present Illness History of Present Illness: LO HUBER is a 87 year old female who presented to the ED 1 day prior for abdominal pain. She returns back to emergency room since pain on her right side returned back. Patient has been experiencing right-sided pain for a week and was advised by her primary care provider to come to emergency room to be further evaluated. She had CT of the abdomen done which demonstrated a distended gallbladder with multiple gallstones. At that time she was evaluated by Dr. Kincaid who advised her to be hospitalized for surgery. Patient states that she declined because she wanted to go home with her daughter since it was late. Physical Exam Vital Signs: Temp Pulse Resp BP Pulse Ox 99.0 F 101 H 20 123/61 99 06/10/17 07:10 06/10/17 07:10 06/10/17 07:10 06/10/17 07:10 06/10/17 07:10 Intake & Output 06/09/17 06/10/17 06/11/17 06:59 06:59 06:59 Intake Total 2900 Output Total 450 Balance 2450 Weight 63.3 kg General appearance: PRESENT: no acute distress, well-developed, well-nourished Head exam: PRESENT: normocephalic Mouth exam: PRESENT: moist Neck exam: PRESENT: full ROM. ABSENT: JVD Respiratory exam: PRESENT: clear to auscultation addison, unlabored Cardiovascular exam: PRESENT: RRR. ABSENT: systolic murmur GI/Abdominal exam: PRESENT: soft, tenderness - Mild tenderness, lap incisions C/ D/I. ABSENT: guarding, hypoactive bowel sounds Musculoskeletal exam: PRESENT: ambulatory Neurological exam: PRESENT: alert, awake, CN II-XII grossly intact Psychiatric exam: PRESENT: appropriate affect Skin exam: PRESENT: dry Results Laboratory Results: 06/10/17 05:40 06/10/17 05:40 06/10/17 06/10/17 05:40 05:40 WBC 8.1 RBC 3.99 Hgb 12.5 Hct 37.6 MCV 94 MCH 31.4 MCHC 33.3 RDW 13.7 Plt Count 162 Seg Neutrophils % 71.7 Lymphocytes % 15.5 Monocytes % 9.9 Eosinophils % 2.0 Basophils % 0.9 Absolute Neutrophils 5.8 Absolute Lymphocytes 1.2 Absolute Monocytes 0.8 Absolute Eosinophils 0.2 Absolute Basophils 0.1 Sodium 137.6 Potassium 4.4 Chloride 103 Carbon Dioxide 26 Anion Gap 9 BUN 27 H Creatinine 1.01 Est GFR ( Amer) > 60 Est GFR (Non-Af Amer) 52 L Glucose 94 Calcium 9.5 Impressions: Radiology reviewed Qualifiers PATEINT BEING DISCHARGED WITH ANY OF THE FOLLOWING DIAGNOSIS?: No Plan Time Spent: Less than 30 Minutes
[2017-06-10 13:01] VITALS: BP 131/66
--- NOTE | 2017-06-10 13:39 | PDOC PROGRESS REPORT ---
Subjective Progress Note for:: 06/10/17 Reason For Visit: ACUTE CHOLECYSTITIS ABDOMINAL ANEURYSM Doing well, no complaints, eating diet Physical Exam Vital Signs: Temp Pulse Resp BP Pulse Ox 99.0 F 101 H 20 131/66 H 99 06/10/17 12:31 06/10/17 12:31 06/10/17 12:31 06/10/17 12:31 06/10/17 12:31 Intake & Output 06/09/17 06/10/17 06/11/17 06:59 06:59 06:59 Intake Total 2900 237 Output Total 450 Balance 2450 237 Weight 63.3 kg General appearance: PRESENT: no acute distress Exam: Sitting up in bed chatting. GI/Abdominal exam: PRESENT: other - No bleeding no peritoneal signs dressings dry Results Laboratory Results: 06/10/17 05:40 06/10/17 05:40 06/10/17 06/10/17 05:40 05:40 WBC 8.1 RBC 3.99 Hgb 12.5 Hct 37.6 MCV 94 MCH 31.4 MCHC 33.3 RDW 13.7 Plt Count 162 Seg Neutrophils % 71.7 Lymphocytes % 15.5 Monocytes % 9.9 Eosinophils % 2.0 Basophils % 0.9 Absolute Neutrophils 5.8 Absolute Lymphocytes 1.2 Absolute Monocytes 0.8 Absolute Eosinophils 0.2 Absolute Basophils 0.1 Sodium 137.6 Potassium 4.4 Chloride 103 Carbon Dioxide 26 Anion Gap 9 BUN 27 H Creatinine 1.01 Est GFR ( Amer) > 60 Est GFR (Non-Af Amer) 52 L Glucose 94 Calcium 9.5 Assessment & Plan - Diagnosis (1) Symptomatic cholelithiasis Is this a current diagnosis for this admission?: Yes Plan: She was 1 day status post laparoscopic cholecystectomy for cholecystitis with cholelithiasis. She is doing well we will plan to discharge her home today follow-up with [facility] also surgical clinic 1 week. She will take Tylenol as needed pain. (2) CKD (chronic kidney disease) stage 3, GFR 30-59 ml/min Is this a current diagnosis for this admission?: Yes (3) Hemiparesis affecting left side as late effect of cerebrovascular accident Is this a current diagnosis for this admission?: Yes (4) Elevated blood pressure reading Is this a current diagnosis for this admission?: Yes (5) Hyperlipidemia Is this a current diagnosis for this admission?: Yes (6) Aortic disease Is this a current diagnosis for this admission?: Yes
--- NOTE | 2017-06-10 16:10 | PDOC CONSULTATION ---
Consultation Consult Date: 06/09/17 Attending physician:: ABELARDO WADDELL Consult reason:: Preop cardiovascular evaluation History of Present Illness Admission Date/PCP: 06/09/17 14:50 CHACHA MAURICE MD Patient complains of: Abdominal pain History of Present Illness: LO HUBER is a 87 year old female who presented to the ED 1 day prior for abdominal pain. She returns back to emergency room since pain on her right side returned back. Patient has been experiencing right-sided pain for a week and was advised by her primary care provider to come to emergency room to be further evaluated. She had CT of the abdomen done which demonstrated a distended gallbladder with multiple gallstones. At that time she was evaluated by Dr. Kincaid who advised her to be hospitalized for surgery. Patient states that she declined because she wanted to go home with her daughter since it was late. This history was reviewed and confirmed. Patient was actually seen postop rather than preop. Patient does have history of prior stroke but patient denied any prior history of myocardial infarction, angina, congestive heart failure etc. Patient describes she has left-sided weakness but minimal residual deficit is now noted. Past Medical History Cardiac Medical History: Reports: Congestive Heart Failure, Hyperlipidema Pulmonary Medical History: Reports: None EENT Medical History: Reports: None Neurological Medical History: Reports: None Endocrine Medical History: Reports: None Renal/ Medical History: Reports: Chronic Kidney Disease, End Stage Renal Disease - Stage 3 - Not on dialysis 04/01/17 Malignancy Medical History: Reports: None GI Medical History: Reports: None Musculoskeltal Medical History: Reports: None Skin Medical History: Reports: None Psychiatric Medical History: Denies: Depression Traumatic Medical History: Reports: None Hematology: Reports: None Infectious Medical History: Reports: None Past Surgical History Past Surgical History: Reports: Cholecystectomy - Just underwent cholecystectomy , Orthopedic Surgery - Left hip femoral fracture ORIF Dr. Gama britton, June 2015, no complx, Vascular Surgery - cva 5 years ago, Other Social History Information Source: Relative Smoking Status: Never Smoker Frequency of Alcohol Use: None Hx Recreational Drug Use: No Drugs: None Hx Prescription Drug Abuse: No - Advance Directive Resuscitation Status: Full Code Surrogate healthcare decision maker:: Patient's son is the surrogate decision-maker Family History Family History: CAD Parental Family History Reviewed: Yes Children Family History Reviewed: Yes Sibling(s) Family History Reviewed.: Yes Medication/Allergy Home Medications: Aspirin [Aspirin 81 mg Chewable Tablet] 81 mg PO DAILY 07/23/15 Atorvastatin Calcium [Lipitor] 40 mg PO QHS 07/23/15 Lisinopril [Prinivil 5 mg Tablet] 5 mg PO DAILY #30 tablet 06/10/17 Metoprolol Succinate [Toprol Xl 25 mg Tab.sr] 25 mg PO DAILY #30 tab.sr.24h Allergies/Adverse Reactions: No Known Allergies Allergy (Verified 06/08/17 18:08) Review of Systems Review of Systems: Please see history of present illness and past medical history as wall. Constitutional: No fever or chills reported. Head : No recent chronic headaches, recent head injury. Eyes: No recent eye pain, diplopia, redness, discharge, acute visual changes. Ears: No recent chronic ear pain, acute hearing loss, ear discharge. Oral cavity: No recent ulcerations, bleeding, oral cavity discomfort. Neck: No recent acute neck pain reported. Hematologic: No recent easy bruising or bleeding or hematologic malignancy reported. Lymphatic: No recent lymphatic malignancy, chronic lymphadenopathy reported yet Cardiovascular system review: See history of present illness. Respiratory system review: No recent chronic cough, hemoptysis, blood clots in the lungs reported. Mild Shortness of breath on exertion Gastrointestinal system review: History of abdominal pain associated with nausea vomiting preop now currently postop. Patient denied hematemesis, melena , recent change in bowel habits. Genitourinary system review: No recent acute or chronic hematuria, flank pain, UTI etc. reported. Skin system review: Negative for any recent abnormal bruising, no rash, no pruritus reported. Neurologic: No prior history of strokes, mini strokes, seizure disorder. Psychologic: No history of major psychosis or major depression reported. Musculoskeletal: Minor aches and pains reported. No acute joint swelling reported. Endocrine: No recent polyuria, polydipsia, recent heat or cold intolerance. Physical Exam Vital Signs: Temp Pulse Resp BP Pulse Ox 97.6 F 94 16 242/134 H 100 06/09/17 16:55 06/09/17 16:55 06/09/17 16:55 06/09/17 16:55 06/09/17 16:55 Intake & Output 06/08/17 06/09/17 06/10/17 06:59 06:59 06:59 Intake Total 1450 Output Total 450 Balance 1000 Exam: GENERAL: well-nourished and in no acute distress. Alert and oriented x3 HEAD: Atraumatic, normocephalic. EYES: Pupils equal round and reactive to light, extraocular movements intact, sclera anicteric, conjunctiva are normal. ENT: TMs normal, nares patent, oropharynx clear without exudates. Moist mucous membranes. No oral ulcerations or bleeding gums noted NECK: supple without lymphadenopathy. Trachea is central. No cervical or axillary lymphadenopathy noted. Carotids are 2+, JVD WNL LUNGS: Respiration seems nonlabored, no significant accessory muscle action noted. Breath sounds clear to auscultation bilaterally and equal noted. No wheezes rales or rhonchi noted. No significant dullness noted on percussion. CHEST: Palpation of the chest wall shows no significant chest wall tenderness. No other significant abnormalities noted. HEART: [place] [employer], No PSH, 1/6 BRANDI aortic area, 1/6 bernal systolic murmur mitral area, no rubs, no gallops. ABDOMEN: Postsurgical changes associated with cholecystectomy noted, normoactive bowel sounds. No guarding, no rebound. No rigidity noted . No masses appreciated. EXTREMITIES: Pedal pulses are 1-2+, no calf tenderness noted. No clubbing or cyanosis.trace to 1+ pedal edema noted NEUROLOGICAL: Focused neurological exam showed no significant neurologic deficit. Normal speech, no focal weakness appreciated. PSYCH: Normal mood, normal affect. Judgment and insight within normal limits. SKIN: No significant ecchymosis, rash, ulcerations or signs of pruritus noted. MUSCULOSKELETAL EXAM: No significant joint swelling noted. Results EKG Comments: Sinus rhythm, LVH with secondary ST-T wave changes Assessment & Plan - Diagnosis (1) CHF (congestive heart failure) Qualifiers: Congestive heart failure type: diastolic Congestive heart failure chronicity: chronic Qualified Code(s): I50.32 - Chronic diastolic (congestive ) heart failure Is this a current diagnosis for this admission?: No (2) CKD (chronic kidney disease) stage 3, GFR 30-59 ml/min Is this a current diagnosis for this admission?: Yes (3) Heart murmur on physical examination Is this a current diagnosis for this admission?: Yes (4) Hemiparesis affecting left side as late effect of cerebrovascular accident Is this a current diagnosis for this admission?: Yes (5) Hyperlipidemia Qualifiers: Hyperlipidemia type: unspecified Qualified Code(s): E78.5 - Hyperlipidemia , unspecified Is this a current diagnosis for this admission?: Yes (6) Abdominal pain Qualifiers: Abdominal location: right upper quadrant Qualified Code(s): R10.11 - Right upper quadrant pain Is this a current diagnosis for this admission?: Yes (7) Status post cholecystectomy Is this a current diagnosis for this admission?: Yes - Notes Notes: Initial consultation was for preop evaluation, however patient was taken directly to the OR, patient was seen postop as the EKG was reviewed and noted to be borderline abnormal. Patient however noted to be comfortable without any cardiac related issues. She was noted to maintain sinus rhythm and not in clinical CHF. Patient does have heart murmur and she describes history of a leaking aortic valve. Have discussed that follow-up may be needed. Patient generally stable from cardiac standpoint. Continue cardiac monitoring and maintain vital signs at this point. Have recommended that patient follow- up with quantitative associate of her choice as an outpatient. - Time Time Spent: 30 to 50 Minutes - CODE STATUS was discussed, patient remains full code. Surrogate decision-maker patient's son. Multiple medical problems were addressed. More than 50% of the time spent coordinating care, discussing management plans with involved caregivers. Management plans discussed with involved personnels. Medical decision making was of moderate to high complexity , patient's has multiple comorbidities. Medications reviewed and adjusted accordingly: Yes
--- NOTE | 2017-06-10 16:17 | PDOC PROGRESS REPORT ---
Subjective Progress Note for:: 06/10/17 Subjective:: Patient seen on morning rounds with her son at bedside. Patient has done well postop. Have advised patient to have incentive spirometry. Pt is denying any chest arm or neck discomfort. Patient denying any PND, orthopnea. Patient denied any sustained palpitations, dizziness, syncope, near syncope. Patient denying any fever chills. Patient denying any other significant discomfort. Patient is maintaining sinus rhythm. Review of systems: Rest review of systems negative. Medications: Medications have been reviewed. Reason For Visit: ACUTE CHOLECYSTITIS ABDOMINAL ANEURYSM Physical Exam Vital Signs: Temp Pulse Resp BP Pulse Ox 99.0 F 101 H 20 131/66 H 99 06/10/17 12:31 06/10/17 12:31 06/10/17 12:31 06/10/17 12:31 06/10/17 12:31 Intake & Output 06/09/17 06/10/17 06/11/17 06:59 06:59 06:59 Intake Total 2900 237 Output Total 450 Balance 2450 237 Weight 63.3 kg Exam: GENERAL: well-nourished and in no acute distress. Alert and oriented x3 HEAD: Atraumatic, normocephalic. EYES: Pupils equal round and reactive to light, extraocular movements intact, sclera anicteric, conjunctiva are normal. ENT: TMs normal, nares patent, oropharynx clear without exudates. Moist mucous membranes. No oral ulcerations or bleeding gums noted NECK: supple without lymphadenopathy. Trachea is central. No cervical or axillary lymphadenopathy noted. Carotids are 2+, JVD WNL LUNGS: Respiration seems nonlabored, no significant accessory muscle action noted. Breath sounds clear to auscultation bilaterally and equal noted. No wheezes rales or rhonchi noted. No significant dullness noted on percussion. CHEST: Palpation of the chest wall shows no significant chest wall tenderness. No other significant abnormalities noted. HEART: [place] [employer], No PSH, 2/6 BRANDI aortic area, 1/6 bernal systolic murmur mitral area, no rubs, no gallops. ABDOMEN: Postop cholecystectomy changes noted, normoactive bowel sounds. No guarding, no rebound. No rigidity noted . No masses appreciated. EXTREMITIES: Pedal pulses are 1-2+, no calf tenderness noted. No clubbing or cyanosis.trace to 1+ pedal edema noted NEUROLOGICAL: Focused neurological exam showed no significant neurologic deficit. Normal speech, no focal weakness appreciated. PSYCH: Normal mood, normal affect. Judgment and insight within normal limits. SKIN: No significant ecchymosis, rash, ulcerations or signs of pruritus noted. MUSCULOSKELETAL EXAM: No significant joint swelling noted. Results Laboratory Results: 06/10/17 05:40 06/10/17 05:40 06/10/17 06/10/17 05:40 05:40 WBC 8.1 RBC 3.99 Hgb 12.5 Hct 37.6 MCV 94 MCH 31.4 MCHC 33.3 RDW 13.7 Plt Count 162 Seg Neutrophils % 71.7 Lymphocytes % 15.5 Monocytes % 9.9 Eosinophils % 2.0 Basophils % 0.9 Absolute Neutrophils 5.8 Absolute Lymphocytes 1.2 Absolute Monocytes 0.8 Absolute Eosinophils 0.2 Absolute Basophils 0.1 Sodium 137.6 Potassium 4.4 Chloride 103 Carbon Dioxide 26 Anion Gap 9 BUN 27 H Creatinine 1.01 Est GFR ( Amer) > 60 Est GFR (Non-Af Amer) 52 L Glucose 94 Calcium 9.5 Assessment & Plan - Diagnosis (1) Status post cholecystectomy Is this a current diagnosis for this admission?: Yes (2) CHF (congestive heart failure) Qualifiers: Congestive heart failure type: diastolic Congestive heart failure chronicity: chronic Qualified Code(s): I50.32 - Chronic diastolic (congestive ) heart failure Is this a current diagnosis for this admission?: No (3) CKD (chronic kidney disease) stage 3, GFR 30-59 ml/min Is this a current diagnosis for this admission?: No (4) Heart murmur on physical examination Is this a current diagnosis for this admission?: Yes (5) Hemiparesis affecting left side as late effect of cerebrovascular accident Is this a current diagnosis for this admission?: Yes (6) Hyperlipidemia Qualifiers: Hyperlipidemia type: unspecified Qualified Code(s): E78.5 - Hyperlipidemia , unspecified Is this a current diagnosis for this admission?: Yes (7) Abdominal pain Qualifiers: Abdominal location: right upper quadrant Qualified Code(s): R10.11 - Right upper quadrant pain Is this a current diagnosis for this admission?: Yes (8) Abdominal aortic aneurysm Qualifiers: Presence of rupture: without rupture Qualified Code(s): I71.4 - Abdominal aortic aneurysm, without rupture Is this a current diagnosis for this admission?: No - Notes Notes: Patient is status post cholecystectomy regarding which she has done well. Patient does have multiple chronic problems which would need to be followed as an outpatient. Have offered my services. Patient does carry history of congestive heart failure, chronic kidney disease, prior stroke with left hemiparesis but these are all stable. Patient does have hyperlipidemia and have advised patient to continue statin therapy. Patient does have chronic abdominal aortic aneurysm discussed that periodic follow-up will be needed. I will be happy to provide this service at my office. Patient to report any further problems. Will sign off. Please reconsult if needed. - Time Time with patient: 15-25 minutes - CODE STATUS was discussed, patient remains full code. Surrogate decision-maker unchanged. Multiple medical problems were addressed. More than 50% of the time spent coordinating care, discussing management plans with involved caregivers. Management plans discussed with involved personnels. Medical decision making was of mild to moderate , patient' s has multiple comorbidities.
[2017-06-10] MEDS ORDERED: ATORVASTATIN CALCIUM 40 MG TABLET PO SCH (22:00)
== END 2017-06-10 13:23 | disposition home or self-care (01) | DRG 418 ==
LOC: ER 10:06 → EH 14:50 → 3W 18:30
PROVIDERS: ADMIT Family Medicine; ATTEND Family Medicine
PROC: 0FT44ZZ Resection of Gallbladder, Percutaneous Endoscopic Approach (ICD-10-PCS; principal; 2017-06-09 16:00)
DX: K80.18 Calculus of gallbladder with other cholecystitis without obstruction (principal); I50.32 Chronic diastolic (congestive) heart failure; I69.354 Hemiplegia and hemiparesis following cerebral infarction affecting left non-dominant side; I13.0 Hypertensive heart and chronic kidney disease with heart failure and stage 1 through stage 4 chronic kidney disease, or unspecified chronic kidney disease; E78.00 Pure hypercholesterolemia, unspecified; N18.3 Chronic kidney disease, stage 3 (moderate); R03.0 Elevated blood-pressure reading, without diagnosis of hypertension; I71.4 Abdominal aortic aneurysm, without rupture; Z79.899 Other long term (current) drug therapy; Z79.82 Long term (current) use of aspirin
CPT/HCPCS: 36415; 71275; 74174; 790; 80048; 80053; 80076; 81001; 83690; 85025; 88304; 93005; 93010; 99285; J0131; J0330; J0360; J0690; J2250; J2270; J2310; J2405; J2704; J3010; J3490; J7030